=== PATIENT | male | born 1950 | race Caucasian/White ===

== ENCOUNTER → 2017-10-16 | Outpatient (CLI) | payer BC | LOC: M LRY 12:51 | DX: R06.2 Wheezing (principal) | CPT/HCPCS: 71046 ==

== ENCOUNTER → 2017-11-14 | Outpatient (REF) | payer BC ==
[2017-11-14 12:18] LABS: BASO % 0.4 % (0.0-1.0); EOS # 0.2 10^3/uL (0.0-0.50); EOS % 2.3 % (0.0-3.0); HEMATOCRIT 41.2 % (42.0-52.0); HEMOGLOBIN 13.6 g/dl (13.5-17.5); IMMATURE GRANULOCYTE % 0.4 % (0-3.0); LYMPH # 1.3 10^3/uL (1.5-4.5); LYMPH % 17.8 % (24.0-44.0); MEAN CORPUSCULAR HEMOGLOBIN 27.5 pg (27.0-33.0); MEAN CORPUSCULAR VOLUME 83.4 fl (80.0-96.0); MONO # 0.7 10^3/uL (0.0-0.8); MONO % 9.3 % (0.0-5.0); NEUTROPHILS # 4.9 10^3/uL (1.8-7.7); NEUTROPHILS % 69.8 % (36.0-66.0); PLATELET COUNT, AUTOMATED 482 10^3/uL (150-450); RED BLOOD COUNT 4.94 10^6/uL (4.30-6.10); RED CELL DISTRIBUTION WIDTH 14.3 % (11.5-14.5)
[2017-11-14 12:36] LABS: TOTAL 25(OH) VITAMIN D 15.3 NG/ML (30.0-100.0); VITAMIN B12 LEVEL 430 PG/ML (247-911)
[2017-11-14 12:40] LABS: ALBUMIN 3.3 GM/DL (3.2-5.2); ALKALINE PHOSPHATASE 118 U/L (45-117); ALT/SGPT 18 U/L (12-78); ANION GAP 8 MEQ/L (8-16); AST/SGOT 12 U/L (7-37); BILIRUBIN,TOTAL 0.3 MG/DL (0.2-1.0); BLOOD UREA NITROGEN 9 MG/DL (7-18); CALCIUM LEVEL 9.3 MG/DL (8.8-10.2); CARBON DIOXIDE LEVEL 27 MEQ/L (21-32); CHLORIDE LEVEL 104 MEQ/L (98-107); CHOLESTEROL LEVEL 230 MG/DL (<200); CHOLESTEROL RISK RATIO 5.609 (<5); CREATININE FOR GFR 0.98 MG/DL (0.70-1.30); GLOMERULAR FILTRATION RATE > 60.0 (>49); GLUCOSE, FASTING 98 MG/DL (70-100); HDL CHOLESTEROL 41 MG/DL (>40); LDL CHOLESTEROL 164.8 MG/DL (<100); NON-HDL-C 189 MG/DL; POTASSIUM SERUM 4.4 MEQ/L (3.5-5.1); PSA SCREENING 2.53 NG/ML (< 4.0); SODIUM LEVEL 139 MEQ/L (136-145); TOTAL PROTEIN 7.4 GM/DL (6.4-8.2); TRIGLYCERIDES LEVEL 121 MG/DL (<150)
== END ==
LOC: M SFHCPLAZ 11:48
DX: J44.9 Chronic obstructive pulmonary disease, unspecified (principal); Z13.220 Encounter for screening for lipoid disorders; Z12.5 Encounter for screening for malignant neoplasm of prostate; Z72.0 Tobacco use
CPT/HCPCS: 82607

== ENCOUNTER → 2017-11-14 | Outpatient (CLI) | payer BC | LOC: M LRY 08:24 | DX: J44.9 Chronic obstructive pulmonary disease, unspecified (principal); R91.8 Other nonspecific abnormal finding of lung field | CPT/HCPCS: 71046 ==

== ENCOUNTER → 2017-11-21 | Outpatient (CLI) | payer BC | LOC: M LRY 16:06 | DX: M25.561 Pain in right knee (principal) | CPT/HCPCS: 73564 ==

== ENCOUNTER → 2017-12-14 | Outpatient (REF) | payer BC ==
[2017-12-14 11:51] LABS: ALBUMIN 3.7 GM/DL (3.2-5.2); ALBUMIN/GLOBULIN RATIO 0.97 (1.00-1.93); ALKALINE PHOSPHATASE 101 U/L (45-117); ALT/SGPT 21 U/L (12-78); ANION GAP 11 MEQ/L (8-16); AST/SGOT 16 U/L (7-37); BILIRUBIN,TOTAL 0.4 MG/DL (0.2-1.0); BLOOD UREA NITROGEN 19 MG/DL (7-18); CALCIUM LEVEL 9.6 MG/DL (8.8-10.2); CARBON DIOXIDE LEVEL 23 MEQ/L (21-32); CHLORIDE LEVEL 105 MEQ/L (98-107); CREATININE FOR GFR 1.06 MG/DL (0.70-1.30); GLOMERULAR FILTRATION RATE > 60.0 (>49); GLUCOSE, FASTING 110 MG/DL (70-100); POTASSIUM SERUM 4.7 MEQ/L (3.5-5.1); SODIUM LEVEL 139 MEQ/L (136-145); TOTAL PROTEIN 7.5 GM/DL (6.4-8.2)
== END ==
LOC: M SFHCPLAZ 09:09
DX: M17.11 Unilateral primary osteoarthritis, right knee (principal)
CPT/HCPCS: 80053

== ENCOUNTER → 2017-12-19 | Outpatient (CLI) | payer BC ==
[~2017-12-19] MED LIST: ISOVUE-370 76% 100ML VIAL (Q9967) As Ordered
== END ==
LOC: M RAD 10:38
DX: R91.8 Other nonspecific abnormal finding of lung field (principal); J44.9 Chronic obstructive pulmonary disease, unspecified
CPT/HCPCS: Q9967

== ENCOUNTER → 2018-04-12 | Outpatient (REF) | payer BC ==
[2018-04-12 13:02] LABS: BASO % 0.5 % (0.0-1.0); EOS # 0.1 10^3/uL (0.0-0.50); EOS % 1.2 % (0.0-3.0); HEMATOCRIT 45.6 % (42.0-52.0); HEMOGLOBIN 14.5 g/dl (13.5-17.5); IMMATURE GRANULOCYTE % 0.4 % (0-3.0); LYMPH # 1.3 10^3/uL (1.5-4.5); LYMPH % 16.3 % (24.0-44.0); MEAN CORPUSCULAR HEMOGLOBIN 25.5 pg (27.0-33.0); MEAN CORPUSCULAR HGB CONC 31.8 g/dl (32.0-36.5); MEAN CORPUSCULAR VOLUME 80.3 fl (80.0-96.0); MONO # 0.6 10^3/uL (0.0-0.8); MONO % 7.8 % (0.0-5.0); NEUTROPHILS # 5.7 10^3/uL (1.8-7.7); NEUTROPHILS % 73.8 % (36.0-66.0); PLATELET COUNT, AUTOMATED 400 10^3/uL (150-450); RED BLOOD COUNT 5.68 10^6/uL (4.30-6.10); RED CELL DISTRIBUTION WIDTH 15.5 % (11.5-14.5); WHITE BLOOD COUNT 7.7 10^3/uL (4.0-10.0)
[2018-04-12 13:12] LABS: ALBUMIN 3.6 GM/DL (3.2-5.2); ALBUMIN/GLOBULIN RATIO 0.95 (1.00-1.93); ALKALINE PHOSPHATASE 113 U/L (45-117); ALT/SGPT 21 U/L (12-78); ANION GAP 7 MEQ/L (8-16); AST/SGOT 18 U/L (7-37); BILIRUBIN,TOTAL 0.4 MG/DL (0.2-1.0); BLOOD UREA NITROGEN 13 MG/DL (7-18); CALCIUM LEVEL 9.6 MG/DL (8.8-10.2); CARBON DIOXIDE LEVEL 30 MEQ/L (21-32); CHLORIDE LEVEL 101 MEQ/L (98-107); CREATININE FOR GFR 1.12 MG/DL (0.70-1.30); GLOMERULAR FILTRATION RATE > 60.0 (>49); GLUCOSE, FASTING 93 MG/DL (70-100); POTASSIUM SERUM 4.6 MEQ/L (3.5-5.1); SODIUM LEVEL 138 MEQ/L (136-145); TOTAL PROTEIN 7.4 GM/DL (6.4-8.2)
[2018-04-12 13:17] LABS: INR 0.97
[2018-04-12 13:18] LABS: PARTIAL THROMBOPLASTIN TIME 32.9 SECONDS (25.4-37.6)
[2018-04-12 13:20] LABS: TOTAL 25(OH) VITAMIN D 49.3 NG/ML (30.0-100.0)
== END ==
LOC: M SFHCLERA 10:44
DX: M17.11 Unilateral primary osteoarthritis, right knee (principal); E55.9 Vitamin D deficiency, unspecified
CPT/HCPCS: 80053

== ENCOUNTER → 2018-04-25 | Outpatient (CLI) | payer BC | LOC: M CARPUL 07:34 | DX: J44.9 Chronic obstructive pulmonary disease, unspecified (principal) | CPT/HCPCS: 94060 ==

== ENCOUNTER 2018-04-26 07:01 | Inpatient (IN) | payer MEDICARE, BC ==
--- NOTE | 2018-04-20 09:54 | HPE ---
DATE OF ADMISSION: 04/26/2018 ATTENDING PHYSICIAN: Dr. Bartlett CHIEF COMPLAINT: Right knee pain and stiffness. HISTORY: This is a pleasant 67-year-old male patient with progressively worsening right knee pain and stiffness. He has failed to improve with conservative management. He has elected for surgery for his continued symptoms. He has pain with weightbearing activities and activities of daily living. He has end-stage degenerative changes of his right knee on radiographs. He has been consented by Dr Bartlett for a right total knee arthroplasty. Medical optimization with Dr. Khan. CURRENT MEDICATIONS: - Drisdol 5000 units one capsule once per week - Voltaren gel as needed, discontinue that five days prior to surgery - ProAir rescue inhaler 90 mcg use as needed - Spiriva hand inhaler 18 mcg one inhalation once per day. He will bring that with him to the hospital. MEDICAL CONDITIONS INCLUDE: Chronic obstructive pulmonary disease (COPD). End-stage osteoarthritis of the right knee. Nicotine abuse. ALLERGIES: PENICILLIN. SOCIAL HISTORY: Positive for smoking and social alcohol use SURGICAL HISTORY: Meniscal repair 1974. Appendectomy. Tonsillectomy. FAMILY HISTORY: Noncontributory. REVIEW OF SYSTEMS: Denies fever or chills. Denies chest pain, shortness of breath or cough. He has intermittent symptomatology that he uses his rescue inhaler, but he uses rarely. Denies any recent upper respiratory infection (URI) or urinary tract infection (UTI) symptoms. Has persistent pain in his right knee with weightbearing activities and activities of daily living. Denies any changes in bowel or bladder habits. Physical exam today reveals alert, well-nourished, well-developed male patient. He ambulates with a limping gait favoring his right side. Exam of the right knee does reveal tenderness mainly medially and some irritability with knee range of motion. That range of motion is near full. No pain at the extremes of range of motion. He can sensate light touch. Has well perfused right lower extremity. Neck is supple without adenopathy or JVD. Lungs: There is some minimal wheezing in the base of the lungs bilaterally. Though clear to auscultation in the upper lobes. Heart: Regular rate and rhythm. Abdomen: Bowel sounds are present. CURRENT VITAL SIGNS: Weight 130 pounds, height 5.8, temperature 98.2, blood pressure 113/79, respirations 15. IMPRESSION: Symptomatic osteoarthritis of right knee. LABORATORY DATA: PT 13.0, INR 0.97, sed rate not present for review. WBC count 7.7, RBC count 5.6, hemoglobin 14.5, hematocrit 45.6, glucose 93, BUN 13, creatinine 1.12, sodium 138, potassium 4.6. EKG sinus rhythm with PACs. CHEST X-RAY: Right lung nodule evaluated with a CT scan notable for a stable appearing right lung nodule as well as COPD changes. PLAN: He is consented by Dr. Bartlett for right total knee arthroplasty. TOÑO
[2018-04-26] VITALS (7 sets, daily range): BP systolic 127–142; BP diastolic 75–96
[~2018-04-26] VITALS: Ht 172.7 cm; Wt 59.4 kg
[~2018-04-26 07:01] MED LIST changes: +ALEV220T26 PO; +CelecoXIB 400 MG CAP PO ONE; +DICL1GEL3 TOP; -ISOVUE-370 76% 100ML VIAL (Q9967) As Ordered; +LR 1,000 ML IV ONE; +PERCOCET 5MG/325MG TAB PO ONE; +PREGABALIN 75 MG CAP(LYRICA) PO ONE; +PROAAER10 INH; +TIOT18INH INH; +VANCOMYCIN HCL 1,000 MG, VIAL MATE ADAPTER 1 EACH in D5W 250 ML IV ONE
[2018-04-26] MEDS ORDERED: VANCOMYCIN 1000 MG/20 ML VIAL (J3370) As Ordered ONE (07:56)
[2018-04-26] MEDS ORDERED: MIDAZOLAM INJ 2 MG/2 ML VIAL (J2250) As Ordered ONE ×2 (08:27→08:33)
[2018-04-26] MEDS ORDERED: fentaNYL 100 MCG/2 ML INJECTION (J3010) As Ordered ONE (08:27)
[2018-04-26] MEDS ORDERED: dexameTHASONE 4 MG/ML 1ML VIAL (J1100) As Ordered ONE (08:33)
[2018-04-26] MEDS ORDERED: PROPOFOL 200 MG/20 ML VIAL As Ordered ONE (08:33)
[2018-04-26] MEDS ORDERED: ONDANSETRON 4MG/2ML VIAL (J2405) As Ordered ONE (08:33)
[2018-04-26] MEDS ORDERED: LIDOCAINE 2% INJ 100 MG/5 ML SDV (FOR ANES.) As Ordered ONE (08:36)
[2018-04-26] MEDS ORDERED: fentaNYL 100 MCG/2 ML INJECTION (J3010) IV ONE (09:15)
[2018-04-26] MEDS ORDERED: MIDAZOLAM INJ 2 MG/2 ML VIAL (J2250) IV ONE (09:15)
[2018-04-26] MEDS ORDERED: BUPIVACAINE/EPIN 0.25% 30 ML VIAL As Ordered ONE (09:52)
[2018-04-26] MEDS ORDERED: EPINEPHrine INJ 1 MG/ML 1ML AMP As Ordered ONE (09:53)
[2018-04-26] MEDS ORDERED: BUPIVACAINE LIPOSOME/PF 1.3% 20ML VIAL (13.3MG/ML)(EXPAREL)(C9290 PER1MG) As Ordered ONE (09:53)
[2018-04-26] MEDS ORDERED: TRANEXAMIC ACID 100 MG/ML 10ML VIAL As Ordered ONE (09:53)
[2018-04-26] MEDS ORDERED: CLINDAMYCIN INJ 900MG/6ML VIAL As Ordered ONE (09:57)
[2018-04-26] MEDS ORDERED: BUPIVACAINE/DEXTROSE 0.75% 2 ML AMP As Ordered ONE (10:33)
[2018-04-26] MEDS ORDERED: ePHEDrine SULFATE 25 MG/5 ML(5MG/ML) SYRINGE As Ordered ONE (11:00)
[2018-04-26] MEDS ORDERED: PHENYLephrine HCL 500 MCG/5 ML (100MCG/ML) SYRINGE (J2370) As Ordered ONE (11:06)
[2018-04-26] MEDS ORDERED: VANCOMYCIN HCL 500 MG/10 ML VIAL (J3370) As Ordered ONE (11:45)
[2018-04-26] MEDS: PERCOCET 5MG/325MG TAB PO PRN ×2 (12:55→13:48)
[2018-04-26] MEDS ORDERED: ACETAMINOPHEN TAB 650MG DOSE (2X325MG) PO PRN (13:00)
[2018-04-26] MEDS ORDERED: NORTRIPTYLINE 10 MG CAP PO PRN (13:00)
[2018-04-26] MEDS ORDERED: PERCOCET 5MG/325MG TAB PO PRN ×2 (13:00)
[2018-04-26] MEDS ORDERED: ONDANSETRON 4MG/2ML VIAL (J2405) IV PRN ×2 (13:00→13:15)
[2018-04-26] MEDS ORDERED: FLEET ENEMA PR PRN (13:00)
--- NOTE | 2018-04-26 13:08 | REP ---
REASON FOR EXAM: Postoperative. PRIORS: None. A total knee prosthetic device has been placed. The femoral and tibial components of which are well seated and well approximated. There is expected postoperative soft tissue swelling. IMPRESSION: Status post TKR as described above. Electronically Signed by Elliott Sol DO 04/26/2018 01:51 P
[2018-04-26] MEDS ORDERED: LR 1,000 ML IV SCH (13:15)
[2018-04-26] MEDS ORDERED: HYDROMORPHONE HCL 0.5 MG/ 0.5 ML SYRINGE (J1170 PER 1) IV PRN ×2 (13:15)
[2018-04-26] MEDS ORDERED: fentaNYL 100 MCG/2 ML INJECTION (J3010) IV PRN (13:15)
[2018-04-26] MEDS ORDERED: LIDOCAINE 1% MDV 20ML VIAL ONE (13:33)
[2018-04-26] MEDS ORDERED: ROPIvacaine 0.5% 30 ML INJECTION (J2795 PER 1MG) ONE (13:33)
[2018-04-26] MEDS ORDERED: dexameTHASONE 10 MG/1 ML VIAL PRES.FREE (J1100) ONE (13:33)
[2018-04-26] MEDS: D5W/LR 1,000 ML IV SCH ×2 (15:51→23:00)
--- NOTE | 2018-04-26 17:49 | IPNPDOC ---
Text Note Date of Service The patient was seen on 04/26/18. NOTE HPI: Patient had right knee replacement today. Is comfortable. Denies any pain currently. No shortness of breath or cough. Normally uses spiriva daily for emphysema and uses rescue inhaler couple times a week as needed. ROS: General: No fevers, chills. Cardiac: No chest pain. Respiratory: No cough, shortness of breath. Physical Exam: General: Resting comfortably in bed. No acute distress. HEENT: Atraumatic. Cardiac: Normal s1, s2. No clicks rubs or gallops. Respiratory: Clear to auscultation bilaterally. Abdomen: Soft, nondistended. Extremity: Left lower extremity elevated on pillows. Surgical site over right knee covered. Assessment/Plan: 1. Right knee replacement Care managed by orthopaedics. 2. Emphysema Patient uses Spiriva and rescue inhaler at home. Continue with Spiriva tomorrow. 3. Nicotine dependence Patient smokes 1.5 ppd. Offered nicotine patch, declines. Plan: Continue to monitor patient as needed. VS,Fishbone, I+O VS, Fishbone, I+O Vital Signs Date Time Temp Pulse Resp B/P (MAP) Pulse Ox O2 Delivery O2 Flow Rate FiO2 04/26/18 15:00 97.4 104 20 127/78 (94) 91 Room Air 04/26/18 12:35 2 GME ATTESTATION ATTENDING NOTE Family Medicine Attending Note: I was present on site to supervise Mer Sawant D.O. (OGME-3). We discussed the history and exam. I confirmed the scott elements during my [id number] encounter with the patient. We conferred on the assessment and plan; I agree with the note as documented. Mr. Beal did well during surgery. His major medical concern would be COPD and respiratory concerns. He is doing well now. I reinforced regular use of his incentive spirometer which was at his bedside and he could demonstrate adequate use. (office clinician) MER SAWANT DO Apr 26, 2018 17:14 Jose Temple MD Apr 26, 2018 22:04
[2018-04-26] MEDS ORDERED: VANCOMYCIN HCL 1,000 MG, VIAL MATE ADAPTER 1 EACH in D5W 250 ML IV ONE (21:00)
[2018-04-27 02:00] VITALS: BP 119/77
[2018-04-27 06:00] VITALS: BP 145/77
[2018-04-27 07:25] LABS: HEMATOCRIT 34.5 % (42.0-52.0); HEMOGLOBIN 11.2 g/dl (13.5-17.5); MEAN CORPUSCULAR HEMOGLOBIN 25.7 pg (27.0-33.0); MEAN CORPUSCULAR HGB CONC 32.5 g/dl (32.0-36.5); MEAN CORPUSCULAR VOLUME 79.3 fl (80.0-96.0); PLATELET COUNT, AUTOMATED 280 10^3/uL (150-450); RED BLOOD COUNT 4.35 10^6/uL (4.30-6.10); WHITE BLOOD COUNT 15.4 10^3/uL (4.0-10.0)
[2018-04-27 07:36] LABS: INR 1.1; PROTHROMBIN TIME 14.4 SECONDS (12.1-14.4)
[2018-04-27] MEDS ORDERED: XARE10TA PO (08:23)
[2018-04-27] MEDS ORDERED: PERC5TAB12 PO (08:23)
[2018-04-27] MEDS ORDERED: TIOTROPIUM INHALER/CAPSULE (SPIRIVA) INH SCH (09:00)
[2018-04-27] MEDS ORDERED: SENOKOT S TAB PO SCH (09:00)
[2018-04-27] MEDS ORDERED: CelecoXIB (CeleBREX) 100 MG CAP PO ONE (09:00)
[2018-04-27] MEDS ORDERED: MOM 30ML SUSPENSION UDC PO SCH (09:00)
[2018-04-27] MEDS ORDERED: MIRALAX *UNIT DOSE* 17GM PACKET PO SCH (09:00)
[2018-04-27 10:00] VITALS: BP 122/81
--- NOTE | 2018-04-27 17:40 | RO ---
DATE OF PROCEDURE: 04/26/2018 PREOPERATIVE DIAGNOSIS: Right knee osteoarthritis. POSTOPERATIVE DIAGNOSIS: Right knee osteoarthritis. PROCEDURE PERFORMED: Right total knee replacement, cemented posterior stabilized. SURGEON: Dr. Zachary Bartlett DELICATESSEN SLICER: Mr. Painter, Physician Car Knocker ANESTHESIA: Spinal with block. ESTIMATED BLOOD LOSS: Less than 50 mL. No complications. Tourniquet was inflated 250 mmHg. Tourniquet time was 63 minutes. COMPONENTS USED: Include the DePuy Attune posterior stabilized rotating platform knee system. Next, tobramycin bone cement was utilized. INDICATION: Progressive discomfort and deformity right knee. Consent reviewed in detail including a dianne discussion of the pathology involved, the procedure proposed, alternatives including doing nothing, risks including but not limited to pain, failure, infection, bleeding, blood loss, incomplete relief of symptoms, need for additional surgery and other issues. The patient agrees to proceed. DESCRIPTION OF PROCEDURE: Identified in holding area, site and side verified, block was accomplished, brought to the operating room. He was positioned in usual fashion for exposure of the right knee for arthroplasty. Tourniquet high on the right thigh. Addis exsanguination was utilized eventually. Next, the knee was prepped, draped in the usual fashion. Incision outlined with a marking pen, infiltrated with 0.25% Marcaine with epinephrine. Incision made with a #10 blade knife, developed down through skin and subcuticular tissues. Standard medial parapatellar arthrotomy was accomplished. Supracondylar soft tissue cleared. Infrapatellar fat pad removed. Medial release accomplished. Next, patella everted, knee flexed, distal femoral cuts were made, AP sizing guide predicting a size 7 standard femur, four-in-one block secured, appropriate retractors maintained by Mr. Painter. I utilized the oscillating saw to make the anterior, posterior followed by the chamfer cuts. The block was removed. Next, extramedullary tibial alignment guide utilized to make the proximal tibial cut. It was applied to the tibia, secured using pins, adjusted for 4 mm off bad side, pinned into place, based on the second ray, approximately 5 degrees slope. Next, drop rayna was utilized to verify alignment. Next, Mr. Painter secured posterior and Hohmann retractors. I utilized the oscillating saw to remove proximal tibia. Next, once this was accomplished, lamina spreaders were utilized to open knee. Posterior knee was cleared. This included the removal of the meniscus bilaterally, removal of posterior osteophytes bilaterally. Next, notch block was utilized to make the notch cut removing the bone between the femoral condyles and posterior cruciate ligament (PCL) insertion on the femur. Next, spacing blocks were utilized, felt a 10 mm tray/polyethylene was appropriate in both flexion and extension. Next, once this was accomplished, trial components were installed, tamped into place. Knee was placed through a range of motion. Rotational darshana was made. Trial 10 mm was stable. Patella everted, posterior patella cut made, trialed with a size 38 mm patella, which was used. Next, the trial components were then removed. Next, the knee was flexed, tibial plate size 7 was applied, pinned into place. The tibial drill followed by tibial broach were utilized. Next, these components were then removed. Next, Mr. Painter stepped to the back table to prepare the bone cement. Because of the patient's history of COPD, in my opinion slightly increased risk of infection, we did utilize tobramycin bone cement. I prepared the femoral surfaces using pulse lavage and dried them as well as the posterior patella surface. Next, components were cemented into place. Excess cement was removed with curettes, non-trial polyethylene was installed, the knee was reduced, patella clamp was installed. Excess cement cleared, cement was allowed to harden. TXA was allowed to glaze grinder the wound for approximately 1 minute while cement was hardening. We also utilized pulse lavage. Please also note that when we cleared the posterior capsule of the knee using the lamina spreaders, I did inject this area with Exparel anesthetic solution for postoperative pain control. Next, as the cement was hardening, I also injected Exparel around the extensor mechanism and subcuticular tissues for postoperative pain control as well as the femoral periosteum, which was accessible from the anterior. Next, once we had irrigated and injected, we closed the arthrotomy with interrupted stitch, as well as a running Stratafix. Deep dermis was approximated with interrupted stitch. Prineo dressing was applied. Tourniquet was deflated at 63 minutes. For further details, please refer to the medical record.
[2018-04-27] MEDS ORDERED: RIVAROXABAN 10 MG TAB (XARELTO) PO SCH (18:00)
--- NOTE | 2018-05-02 09:30 | DSES ---
DATE OF ADMISSION: 04/26/2018 DATE OF DISCHARGE: 04/27/2018 ATTENDING PHYSICIAN: Dr. Zachary Bartlett ADMISSION DIAGNOSIS: Right knee osteoarthritis. OTHER DIAGNOSES: Chronic obstructive pulmonary disease, nicotine abuse. DISCHARGE DIAGNOSIS: Right knee osteoarthritis status post right total knee arthroplasty. HISTORY: The patient is a 68-year-old male that had progressively worsening right knee pain and stiffness. He failed to improve with conservative measures. He continued to have symptoms with weightbearing activities and activities of daily living. He consented for an elective right total knee arthroplasty with Dr. Bartlett for his continued symptoms. OPERATION PERFORMED: Right total knee arthroplasty, cemented posterior stabilized. HOSPITAL COURSE: The patient underwent a right total knee arthroplasty under spinal anesthesia with femoral nerve block. Surgery was uneventful and his hospital course was without complication. He was up with physical therapy per their protocol, weightbearing as tolerated on the right lower extremity. The patient was discharged on oral pain medications and will resume his preoperative medications and diet. The patient will use his thromboembolic deterrent stockings for 30 days postoperatively and take his anticoagulant as directed to prevent deep venous thrombosis. The patient will follow up in our office in 12-14 days for wound check. He is encouraged to contact our office sooner if there is any increase in pain, drainage, redness, numbness and tingling in the extremity, fever greater than 101 degrees or any other concerns. Please see medical record for additional details. TOÑO
== END 2018-04-27 11:55 | disposition home health service (06) | DRG 470 ==
LOC: M OR 07:01 → M MS5PR 13:55
PROVIDERS: ADMIT Orthopaedic Surgery; ATTEND Orthopaedic Surgery
PROC: 0SRC0J9 Replacement of Right Knee Joint with Synthetic Substitute, Cemented, Open Approach (ICD-10-PCS; principal; 2018-04-26 10:30)
DX: M17.11 Unilateral primary osteoarthritis, right knee (principal); J43.9 Emphysema, unspecified; R26.89 Other abnormalities of gait and mobility; F17.210 Nicotine dependence, cigarettes, uncomplicated; Z88.0 Allergy status to penicillin; Z79.899 Other long term (current) drug therapy

== ENCOUNTER → 2018-05-18 | Outpatient (CLI) | payer BC ==
[~2018-05-18] MED LIST changes: -ALEV220T26 PO; -CelecoXIB 400 MG CAP PO ONE; -DICL1GEL3 TOP; +ISOVUE-370 76% 100ML VIAL (Q9967) As Ordered; -LR 1,000 ML IV ONE; -PERCOCET 5MG/325MG TAB PO ONE; -PREGABALIN 75 MG CAP(LYRICA) PO ONE; -PROAAER10 INH; -TIOT18INH INH; -VANCOMYCIN HCL 1,000 MG, VIAL MATE ADAPTER 1 EACH in D5W 250 ML IV ONE
== END ==
LOC: M RAD 14:04
DX: R91.8 Other nonspecific abnormal finding of lung field (principal); I70.0 Atherosclerosis of aorta
CPT/HCPCS: Q9967

== ENCOUNTER → 2018-05-23 | Outpatient (REF) | payer BC ==
[2018-05-26 00:07] LABS: QuantiFERON-TB Gold Plus Negative (Negative)
== END ==
LOC: M SFHCPLAZ 10:30
DX: R91.8 Other nonspecific abnormal finding of lung field (principal)
CPT/HCPCS: 86480

== ENCOUNTER → 2018-10-01 | Outpatient (CLI) | payer BC ==
[~2018-10-01] MED LIST changes: +ALEV220T26 PO; +DICL1GEL3 TOP; -ISOVUE-370 76% 100ML VIAL (Q9967) As Ordered; +PERC5TAB12 PO; +PROAAER10 INH; +TIOT18INH INH; +XARE10TA PO
--- NOTE | 2018-10-01 13:48 | REP ---
Chest two views HISTORY: Cough Comparison: 11/14/2017 The lungs are hyperinflated. Emphysematous changes present. A similar parenchymal density is present in the right lower lobe unchanged compared to the previous study. Linear densities are present in the right lower lobe consistent with scarring. The heart is normal in size. The pulmonary vasculature is normal in appearance. The bony structure is intact. IMPRESSION: COPD. Electronically Signed by Rolando Lei MD 10/01/2018 01:39 P
[2018-10-01 18:16] LABS: BASO % 0.4 % (0.0-1.0); EOS # 0.1 10^3/uL (0.0-0.50); EOS % 1.6 % (0.0-3.0); HEMATOCRIT 44.2 % (42.0-52.0); HEMOGLOBIN 13.9 g/dl (13.5-17.5); LYMPH # 1.6 10^3/uL (1.5-4.5); LYMPH % 19.9 % (24.0-44.0); MEAN CORPUSCULAR HEMOGLOBIN 24.2 pg (27.0-33.0); MEAN CORPUSCULAR HGB CONC 31.4 g/dl (32.0-36.5); MONO # 0.7 10^3/uL (0.0-0.8); MONO % 8.7 % (0.0-5.0); NEUTROPHILS # 5.6 10^3/uL (1.8-7.7); PLATELET COUNT, AUTOMATED 384 10^3/uL (150-450); RED BLOOD COUNT 5.74 10^6/uL (4.30-6.10); WHITE BLOOD COUNT 8.1 10^3/uL (4.0-10.0)
[2018-10-01 18:23] LABS: ALBUMIN 3.6 GM/DL (3.2-5.2); ALT/SGPT 19 U/L (12-78); BILIRUBIN,TOTAL 0.3 MG/DL (0.2-1.0); BLOOD UREA NITROGEN 15 MG/DL (7-18); CALCIUM LEVEL 9.5 MG/DL (8.8-10.2); CARBON DIOXIDE LEVEL 27 MEQ/L (21-32); CHLORIDE LEVEL 100 MEQ/L (98-107); CREATININE FOR GFR 1.01 MG/DL (0.70-1.30); GLOMERULAR FILTRATION RATE > 60.0 (>49); GLUCOSE, FASTING 81 MG/DL (70-100); POTASSIUM SERUM 4.9 MEQ/L (3.5-5.1); SODIUM LEVEL 135 MEQ/L (136-145); TOTAL PROTEIN 7.1 GM/DL (6.4-8.2)
== END ==
LOC: M SMT 13:00
PROVIDERS: ATTEND Physician Assistant Medical
DX: J44.9 Chronic obstructive pulmonary disease, unspecified (principal)

== ENCOUNTER → 2018-10-15 | Outpatient (CLI) | payer BC ==
[~2018-10-15] MED LIST changes: +ISOVUE-370 76% 100ML VIAL (Q9967) As Ordered ONE
--- NOTE | 2018-10-16 05:24 | REP ---
Clinical: Followup lung nodule. Technique: Axial contrast enhanced images from the thoracic inlet to the upper abdomen with coronal and sagittal re-formations. Comparison: 05/18/2018, 02/09/2018. Findings: Advanced COPD/emphysematous changes with bronchiectasis and scattered fibrosis/scarring remains stable. Area of presumed chronic rounded atelectasis along the medial right lower lobe as well as few scattered noncalcified opacities measuring up to approximately 11 mm remain unchanged. No acute consolidation, effusion, or pneumothorax. No significant adenopathy. Mediastinum demonstrates age-related atherosclerotic changes to the thoracic aorta and coronary arteries without aortic aneurysm/dissection, cardiomegaly or pericardial effusion. Surrounding musculoskeletal structures demonstrate age-related changes without focal osseous abnormality. Impression: 1. Area of opacity along the medial right lower lobe with surrounding fibrosis/scarring remains stable and likely represents chronic rounded atelectasis. 2. Few scattered noncalcified opacities primarily noted in the right hemithorax up to 11 mm remains stable. 3. Advanced COPD/emphysematous changes again noted. 4. No obvious acute mediastinal or pleuroparenchymal process appreciated. Electronically Signed by Bernabe Prakash MD 10/16/2018 05:15 A
== END ==
LOC: M RAD 16:27
PROVIDERS: ATTEND Physician Assistant Medical
DX: R91.1 Solitary pulmonary nodule (principal); J44.9 Chronic obstructive pulmonary disease, unspecified
CPT/HCPCS: 71260; Q9967

== ENCOUNTER → 2018-10-17 | Outpatient (REF) | payer BC ==
[~2018-10-17] MED LIST changes: -ISOVUE-370 76% 100ML VIAL (Q9967) As Ordered ONE
[2018-10-17 13:19] LABS: BASO % 0.6 % (0.0-1.0); EOS # 0.1 10^3/uL (0.0-0.50); EOS % 1.7 % (0.0-3.0); HEMATOCRIT 43.2 % (42.0-52.0); HEMOGLOBIN 13.4 g/dl (13.5-17.5); LYMPH # 1.3 10^3/uL (1.5-4.5); MEAN CORPUSCULAR HEMOGLOBIN 24.7 pg (27.0-33.0); MEAN CORPUSCULAR VOLUME 79.7 fl (80.0-96.0); MONO # 0.6 10^3/uL (0.0-0.8); MONO % 9.2 % (0.0-5.0); NEUTROPHILS # 4.8 10^3/uL (1.8-7.7); NEUTROPHILS % 69.1 % (36.0-66.0); PLATELET COUNT, AUTOMATED 407 10^3/uL (150-450); RED BLOOD COUNT 5.42 10^6/uL (4.30-6.10); WHITE BLOOD COUNT 6.9 10^3/uL (4.0-10.0)
[2018-10-17 13:43] LABS: ALBUMIN 3.5 GM/DL (3.2-5.2); ALT/SGPT 16 U/L (12-78); BILIRUBIN,TOTAL 0.4 MG/DL (0.2-1.0); BLOOD UREA NITROGEN 11 MG/DL (7-18); CALCIUM LEVEL 9.3 MG/DL (8.8-10.2); CARBON DIOXIDE LEVEL 27 MEQ/L (21-32); CHLORIDE LEVEL 103 MEQ/L (98-107); CREATININE FOR GFR 0.97 MG/DL (0.70-1.30); GLOMERULAR FILTRATION RATE > 60.0 (>49); GLUCOSE, FASTING 107 MG/DL (70-100); POTASSIUM SERUM 4.5 MEQ/L (3.5-5.1); PTH INTACT 24.8 PG/ML (18.5-88.0); SODIUM LEVEL 136 MEQ/L (136-145); TOTAL 25(OH) VITAMIN D 30.2 NG/ML (30.0-100.0); TOTAL PROTEIN 7.1 GM/DL (6.4-8.2)
== END ==
LOC: M SFHCPLAZ 08:43
PROVIDERS: ATTEND Physician Assistant Medical
DX: J44.9 Chronic obstructive pulmonary disease, unspecified (principal); E55.9 Vitamin D deficiency, unspecified; I10 Essential (primary) hypertension; Z12.5 Encounter for screening for malignant neoplasm of prostate
CPT/HCPCS: 80053; 82306; 83970; 85025; G0103

== ENCOUNTER → 2018-11-27 | Outpatient (REF) | payer BC ==
[2018-11-27 17:45] LABS: ALBUMIN 3.5 GM/DL (3.2-5.2); ALT/SGPT 17 U/L (12-78); BILIRUBIN,TOTAL 0.4 MG/DL (0.2-1.0); BLOOD UREA NITROGEN 16 MG/DL (7-18); C REACTIVE PROTEIN QUANTITATIV 1.03 MG/DL (0.00-0.30); CALCIUM LEVEL 9.7 MG/DL (8.8-10.2); CARBON DIOXIDE LEVEL 25 MEQ/L (21-32); CHLORIDE LEVEL 102 MEQ/L (98-107); CREATININE FOR GFR 1.11 MG/DL (0.70-1.30); GLOMERULAR FILTRATION RATE > 60.0 (>49); GLUCOSE, FASTING 123 MG/DL (70-100); POTASSIUM SERUM 4.2 MEQ/L (3.5-5.1); SODIUM LEVEL 135 MEQ/L (136-145); TOTAL PROTEIN 7.6 GM/DL (6.4-8.2)
[2018-11-27 17:47] LABS: INR 1.02; PROTHROMBIN TIME 13.5 SECONDS (12.1-14.4)
[2018-11-27 17:48] LABS: PARTIAL THROMBOPLASTIN TIME 33.6 SECONDS (25.4-37.6)
[2018-11-27 21:28] LABS: BASO # 0.1 10^3/uL (0.0-0.2); BASO % 0.5 % (0.0-1.0); EOS # 0.1 10^3/uL (0.0-0.50); EOS % 1.2 % (0.0-3.0); HEMOGLOBIN 14.4 g/dl (13.5-17.5); LYMPH # 1.8 10^3/uL (1.5-4.5); LYMPH % 16.8 % (24.0-44.0); MEAN CORPUSCULAR HEMOGLOBIN 25.5 pg (27.0-33.0); MEAN CORPUSCULAR VOLUME 79.8 fl (80.0-96.0); MONO # 0.8 10^3/uL (0.0-0.8); MONO % 7.2 % (0.0-5.0); NEUTROPHILS % 73.7 % (36.0-66.0); PLATELET COUNT, AUTOMATED 500 10^3/uL (150-450); RED BLOOD COUNT 5.64 10^6/uL (4.30-6.10); WHITE BLOOD COUNT 10.9 10^3/uL (4.0-10.0)
[2018-11-27 21:54] LABS: ERYTHROCYTE SEDIMENTATION RATE 7 mm/hr (0-20)
== END ==
LOC: M SFHCPLAZ 13:19
PROVIDERS: ATTEND Family Medicine
DX: Z01.818 Encounter for other preprocedural examination (principal); E78.2 Mixed hyperlipidemia

== ENCOUNTER → 2018-11-27 | Outpatient (CLI) | payer BC ==
--- NOTE | 2018-11-27 15:33 | REP ---
PA and lateral chest: Comparisons are 10/01/2018, 11/14/2017 and 10/16/2017. The lung lemon are chronically hyperinflated, unchanged. The central lukasz are chronically enlarged, unchanged, possibly representing pulmonary hypertension. There are no acute infiltrates or pleural effusions. There is a faintly visible lung nodule inferiorly in the right lung, unchanged from the prior studies. Please refer to the patients chest CT scans for evaluation of this patient's lung nodules. Vertebral body heights, interspacing alignment are normal. Impression: Chronic hyperinflation with chronically enlarged central pulmonary arteries suggestive of COPD and pulmonary hypertension. No acute cardiopulmonary findings. Thoracic spine is unremarkable. The patients known lung nodules have been followed on multiple CT scans. Electronically Signed by Jaswinder Vaca MD 11/27/2018 03:24 P
--- NOTE | 2018-11-27 15:36 | REP ---
Cervical spine seven views: Vertebral body heights and alignment are unremarkable. There is disc space narrowing at C 03/04. There is a large anterior bridging osteophyte at C4-5. These findings are compatible with degenerative disc disease. There is mild facet osteoarthritis. The facets are normally aligned. The prevertebral soft tissues are unremarkable. The odontoid view is unremarkable. There is no bony foraminal encroachment. Impression: Degenerative disc disease as described. Mild facet osteoarthritis. T1 is obscured by the shoulders. Follow-up CT or MRI might be considered to evaluate the C7-T1 area. Electronically Signed by Jaswidner Vaca MD 11/27/2018 03:28 P
--- NOTE | 2018-11-27 16:54 | REP ---
Thoracic spine series: Three views. History: Thoracic spondylosis. Findings: Thoracic vertebral body heights are preserved. No fracture or collapse is seen. Alignment is normal. There is mild discogenic spurring in the cervical spine seen on the swimmer's lateral view. No bony destructive lesion is seen. No paravertebral soft-tissue mass is noted. Impression: Mild degenerative disc changes. No acute bony abnormality. Electronically Signed by Inder Ruiz MD 11/28/2018 07:53 A
== END ==
LOC: M LRY 13:22
PROVIDERS: ATTEND Family Medicine
DX: I28.8 Other diseases of pulmonary vessels (principal); R91.8 Other nonspecific abnormal finding of lung field

== ENCOUNTER 2018-12-07 12:42 | Day surgery (SDC) | payer BC ==
[~2018-12-07] VITALS: Ht 175.3 cm; Wt 52.6 kg
[~2018-12-07 12:42] MED LIST changes: +LIDOCAINE 1% MDV 20ML VIAL SQ PRN; +LR 1,000 ML IV ONE
[2018-12-07] MEDS ORDERED: fentaNYL 250 MCG/5 ML INJECTION (J3010) As Ordered ONE (12:43)
[2018-12-07] MEDS ORDERED: LIDOCAINE 2% INJ 100 MG/5 ML SDV (FOR ANES.) As Ordered ONE (12:43)
[2018-12-07] MEDS ORDERED: ROCURONIUM BROMIDE 50 MG/5 ML VIAL As Ordered ONE (12:43)
[2018-12-07] MEDS ORDERED: MIDAZOLAM INJ 2 MG/2 ML VIAL (J2250) As Ordered ONE (12:43)
[2018-12-07] MEDS ORDERED: KETAMINE HCL 200 MG/20 ML VIAL As Ordered ONE (12:43)
[2018-12-07] MEDS ORDERED: PROPOFOL 200 MG/20 ML VIAL As Ordered ONE (12:43)
[2018-12-07] MEDS ORDERED: KETOROLAC 60 MG/2 ML VIAL (J1885) As Ordered ONE (12:44)
[2018-12-07] MEDS ORDERED: SUGAMMADEX SODIUM 500 MG/5 ML VIAL (BRIDION) As Ordered ONE (12:44)
[2018-12-07] MEDS ORDERED: dexameTHASONE 4 MG/ML 1ML VIAL (J1100) As Ordered ONE (12:44)
[2018-12-07] MEDS ORDERED: ONDANSETRON 4MG/2ML VIAL (J2405) As Ordered ONE (12:44)
[2018-12-07] MEDS ORDERED: CLINDAMYCIN 600 MG/50 ML PREMIX BAG As Ordered ONE (12:56)
[2018-12-07] MEDS ORDERED: CLINDAMYCIN 600 MG in APPROPRIATE DILUENT 1 EA IV ONE (13:00)
[2018-12-07] MEDS ORDERED: BUPIVACAINE/EPIN 0.25% 30 ML VIAL As Ordered ONE (13:04)
[2018-12-07] MEDS ORDERED: ALBUTEROL SULFATE 2.5 MG/0.5 ML INH NEB SOLN As Ordered ONE (13:36)
[2018-12-07] MEDS ORDERED: ALBUTEROL SULFATE 2.5 MG/0.5 ML INH NEB SOLN INH ONE (14:00)
[2018-12-07] MEDS ORDERED: PERCOCET 5MG/325MG TAB As Ordered ONE (16:18)
[2018-12-07] MEDS ORDERED: fentaNYL 100 MCG/2 ML INJECTION (J3010) IV PRN (16:30)
[2018-12-07] MEDS ORDERED: NORCO, ANEXSIA 5/325MG TABLET (HYDROcodone/ACETAMINOPHEN) PO PRN (16:30)
[2018-12-07] MEDS ORDERED: ONDANSETRON 4MG/2ML VIAL (J2405) IV PRN (16:30)
[2018-12-07] MEDS ORDERED: hydrALAZINE INJ 20 MG/ML VIAL IV SCH (16:30)
[2018-12-07] MEDS ORDERED: PERCOCET 5MG/325MG TAB PO PRN (16:30)
[2018-12-07] MEDS ORDERED: LABETALOL HCL 100 MG/20 ML VIAL IV SCH (16:30)
[2018-12-07] MEDS ORDERED: LR 1,000 ML IV SCH (16:30)
[2018-12-07] MEDS ORDERED: HYDROMORPHONE HCL 0.5 MG/ 0.5 ML SYRINGE (J1170 PER 1) IV PRN (16:30)
--- NOTE | 2018-12-07 16:49 | RO ---
DATE OF PROCEDURE: 12/07/2018 PREOPERATIVE DIAGNOSIS: Bilateral inguinal hernias. POSTOPERATIVE DIAGNOSIS: Bilateral inguinal hernias. PROCEDURE: Robotic assisted bilateral inguinal hernia repair. SURGEON: Dr. Goel. ASSIST: Osiris Schultz ANESTHESIA: General. ESTIMATED BLOOD LOSS: 5. COMPLICATIONS: None. INDICATIONS FOR PROCEDURE: Patient is a 68-year-old male presents with bilateral groin pain with bilateral bulges was found to have bilateral inguinal hernia. Recommendation to proceed with robotic repair. Risks, benefits of procedure not limited but including bleeding, infection, hernia formation, hernia recurrence, damage to surrounding structures, need for further surgery discussed in detail with the patient informed was obtained procedure was planned. PROCEDURE: The patient brought back to operating room seven after sufficient sedation and was sterilely prepped and draped. Next time out was done to confirm proper patient and proper procedure. Following that a stab incision made in left lower quadrant Veress was inserted. The abdomen was insufflated to 50 mmHg. Next an 8 mm supraumbilical midline incision was made and an 8 mm optiview port was used to gain access to the abdomen. Once the abdomen was entered Veress needle site was exam and no signs of any injury. Another 8 mm port was placed in the right and left mid abdomen. Next robot was docked from the console in the right groin. There is an obvious direct inguinal hernia identified. The preperitoneal space was opened with a curved incision preperitoneal was space then dissected medially and laterally using blunt sharp dissection. The hernia sac was identified and direct and there is a femoral hernia there as well. Both of those were dissected free completely then and in the indirect space there was a large cord lipoma that was dissected free and removed. Once this was all completed 3-0 and V-lock suture was used to close the fascial defect at the direct hernia site. One that was completed the same and a curved incision made in the left side into the preperitoneal space and this was dissected free medially and laterally where another direct and femoral hernia were identified. These were both completely reduced. Once that was area was completely dissected free Bard 3-D Max light medium size mesh was first placed into the right side sutured in place to the pubic symphysis with 2-0 Vicryl suture. Same process was done the left side with mesh placement and sutured to the pubic symphysis. Next a 2-0 V-Loc was used to close to the peritoneum first on the left on the right after doing so the needles were all removed. The cord lipoma that was removed from the right side was taken out as a specimen and the abdomen was desufflated. Skin incisions were closed 4-0 Vicryl subcu sutures. The abdomen cleaned and dried. Steri-Strips, 4x4 and tape were applied thus ending procedure.
[2018-12-07 19:41] VITALS: BP 150/90
== END 2018-12-07 19:41 | disposition home or self-care (01) ==
LOC: M SDC 12:42
PROVIDERS: ATTEND Surgery
DX: K40.20 Bilateral inguinal hernia, without obstruction or gangrene, not specified as recurrent (principal); J44.9 Chronic obstructive pulmonary disease, unspecified; Z88.0 Allergy status to penicillin; Z79.51 Long term (current) use of inhaled steroids; F17.210 Nicotine dependence, cigarettes, uncomplicated
CPT/HCPCS: 49650; 88304; C1781; J1100; J1885; J2250; J2405; J3010

== ENCOUNTER → 2019-02-19 | Outpatient (CLI) | payer BC ==
[~2019-02-19] MED LIST changes: -LIDOCAINE 1% MDV 20ML VIAL SQ PRN; -LR 1,000 ML IV ONE
--- NOTE | 2019-02-19 12:42 | REP ---
RIGHT HAND SERIES: TWO VIEWS. HISTORY: Rheumatoid arthritis. FINDINGS: Two views of the right hand demonstrate mild diffuse osteopenia. There is osteoarthritic spurring at the 1st MCP joint, mild in degree. There is no significant joint space narrowing. Mild spurring is seen at the IP joint of the thumb. No erosive changes seen. There is no evidence of ulnar deviation. There is some soft tissue swelling about the PIP joint of the ring finger. IMPRESSION: Mild osteoarthritic changes. Diffuse osteopenia. Soft tissue swelling about the PIP joint of the ring finger. No erosive changes. LEFT HAND SERIES: TWO VIEWS. HISTORY: Rheumatoid arthritis. FINDINGS: Two views of the left hand demonstrate mild diffuse osteopenia. There is mild osteoarthritic spurring at the 1st FCI and 1st IP joints. No erosive changes are seen. IMPRESSION: No erosive changes seen. Mild diffuse osteopenia. Early osteoarthritic changes. Electronically Signed by Inder Ruiz MD 02/19/2019 01:06 P
--- NOTE | 2019-02-19 12:45 | REP ---
BILATERAL WRIST SERIES: EIGHT VIEWS. HISTORY: Rheumatoid arthritis. FINDINGS: Four views of each wrist demonstrate preserved joint spaces and normal alignment. No erosive changes seen on either side. There is minimal spurring at the 1st metacarpal carpal articulations bilaterally. IMPRESSION: No erosive changes seen. Minimal osteoarthritis at the 1st carpometacarpal articulation bilaterally. Electronically Signed by Inder Ruiz MD 02/19/2019 01:06 P
== END ==
LOC: M LRY 10:53
PROVIDERS: ATTEND Physician Assistant Medical
DX: M06.012 Rheumatoid arthritis without rheumatoid factor, left shoulder (principal)

== ENCOUNTER → 2019-06-06 | Outpatient (REF) | payer BC ==
[2019-06-06 11:52] LABS: BASO # 0.1 10^3/uL (0.0-0.2); BASO % 0.5 % (0.0-1.0); EOS # 0.1 10^3/uL (0.0-0.5); EOS % 1.5 % (0.0-3.0); HEMOGLOBIN 13.2 g/dl (13.5-17.5); LYMPH # 1.2 10^3/uL (1.5-5.0); LYMPH % 13.3 % (24.0-44.0); MEAN CORPUSCULAR HEMOGLOBIN 24.7 pg (27.0-33.0); MEAN CORPUSCULAR HGB CONC 31.4 g/dl (32.0-36.5); MEAN CORPUSCULAR VOLUME 78.5 fl (80.0-96.0); MONO # 0.9 10^3/uL (0.0-0.8); MONO % 10.1 % (0.0-5.0); NEUTROPHILS # 6.9 10^3/uL (1.5-8.5); NEUTROPHILS % 74.3 % (36.0-66.0); PLATELET COUNT, AUTOMATED 483 10^3/uL (150-450); RED BLOOD COUNT 5.35 10^6/uL (4.30-6.10); WHITE BLOOD COUNT 9.2 10^3/uL (4.0-10.0)
[2019-06-06 11:58] LABS: ALBUMIN 3.2 GM/DL (3.2-5.2); ALT/SGPT 13 U/L (12-78); BILIRUBIN,TOTAL 0.3 MG/DL (0.2-1.0); BLOOD UREA NITROGEN 13 MG/DL (7-18); C REACTIVE PROTEIN QUANTITATIV 2.66 MG/DL (0.00-0.30); CALCIUM LEVEL 9.4 MG/DL (8.8-10.2); CARBON DIOXIDE LEVEL 29 MEQ/L (21-32); CHLORIDE LEVEL 100 MEQ/L (98-107); CREATININE FOR GFR 1.04 MG/DL (0.70-1.30); GLOMERULAR FILTRATION RATE > 60.0 (>49); GLUCOSE, FASTING 95 MG/DL (70-100); POTASSIUM SERUM 4.6 MEQ/L (3.5-5.1); SODIUM LEVEL 134 MEQ/L (136-145); TOTAL PROTEIN 7.3 GM/DL (6.4-8.2)
[2019-06-06 12:23] LABS: ERYTHROCYTE SEDIMENTATION RATE 41 mm/hr (0-20)
== END ==
LOC: M SFHCPLAZ 10:10
PROVIDERS: ATTEND Physician Assistant Medical
DX: M06.012 Rheumatoid arthritis without rheumatoid factor, left shoulder (principal)

== ENCOUNTER → 2019-07-11 | Outpatient (REF) | payer BC ==
[2019-07-11 16:57] LABS: ALBUMIN 3.3 GM/DL (3.2-5.2); ALT/SGPT 14 U/L (12-78); BILIRUBIN,TOTAL 0.3 MG/DL (0.2-1.0); BLOOD UREA NITROGEN 10 MG/DL (7-18); C REACTIVE PROTEIN QUANTITATIV 2.71 MG/DL (0.00-0.30); CALCIUM LEVEL 9.1 MG/DL (8.8-10.2); CARBON DIOXIDE LEVEL 29 MEQ/L (21-32); CHLORIDE LEVEL 98 MEQ/L (98-107); CREATININE FOR GFR 1.02 MG/DL (0.70-1.30); GLOMERULAR FILTRATION RATE > 60.0 (>49); GLUCOSE, FASTING 139 MG/DL (70-100); POTASSIUM SERUM 3.8 MEQ/L (3.5-5.1); SODIUM LEVEL 134 MEQ/L (136-145); TOTAL PROTEIN 7.1 GM/DL (6.4-8.2)
[2019-07-11 16:59] LABS: BASO % 0.4 % (0.0-1.0); EOS # 0.1 10^3/uL (0.0-0.5); EOS % 0.9 % (0.0-3.0); HEMATOCRIT 39.1 % (42.0-52.0); HEMOGLOBIN 12.5 g/dl (13.5-17.5); LYMPH # 1.4 10^3/uL (1.5-5.0); LYMPH % 15.1 % (24.0-44.0); MEAN CORPUSCULAR HEMOGLOBIN 25.1 pg (27.0-33.0); MEAN CORPUSCULAR VOLUME 78.4 fl (80.0-96.0); MONO # 0.7 10^3/uL (0.0-0.8); MONO % 7.2 % (0.0-5.0); NEUTROPHILS # 6.8 10^3/uL (1.5-8.5); NEUTROPHILS % 75.7 % (36.0-66.0); PLATELET COUNT, AUTOMATED 416 10^3/uL (150-450); RED BLOOD COUNT 4.99 10^6/uL (4.30-6.10)
[2019-07-11 17:35] LABS: ERYTHROCYTE SEDIMENTATION RATE 49 mm/hr (0-20)
== END ==
LOC: M SFHCPLAZ 14:04
PROVIDERS: ATTEND Physician Assistant Medical
DX: M06.012 Rheumatoid arthritis without rheumatoid factor, left shoulder (principal)

== ENCOUNTER → 2019-08-16 | Outpatient (REF) | payer BC ==
[2019-08-16 11:34] LABS: ALBUMIN 3.5 GM/DL (3.2-5.2); ALT/SGPT 20 U/L (12-78); BILIRUBIN,TOTAL 0.4 MG/DL (0.2-1.0); BLOOD UREA NITROGEN 14 MG/DL (7-18); C REACTIVE PROTEIN QUANTITATIV 2.17 MG/DL (0.00-0.30); CALCIUM LEVEL 9.3 MG/DL (8.8-10.2); CARBON DIOXIDE LEVEL 27 MEQ/L (21-32); CHLORIDE LEVEL 103 MEQ/L (98-107); CREATININE FOR GFR 0.95 MG/DL (0.70-1.30); GLOMERULAR FILTRATION RATE > 60.0 (>49); GLUCOSE, FASTING 103 MG/DL (70-100); POTASSIUM SERUM 4.8 MEQ/L (3.5-5.1); SODIUM LEVEL 135 MEQ/L (136-145); TOTAL PROTEIN 7.2 GM/DL (6.4-8.2)
[2019-08-16 11:46] LABS: BASO % 0.6 % (0.0-1.0); EOS # 0.1 10^3/uL (0.0-0.5); EOS % 1.4 % (0.0-3.0); HEMATOCRIT 39.9 % (42.0-52.0); HEMOGLOBIN 12.5 g/dl (13.5-17.5); LYMPH # 1.2 10^3/uL (1.5-5.0); LYMPH % 17.7 % (24.0-44.0); MEAN CORPUSCULAR HEMOGLOBIN 24.9 pg (27.0-33.0); MEAN CORPUSCULAR HGB CONC 31.3 g/dl (32.0-36.5); MEAN CORPUSCULAR VOLUME 79.5 fl (80.0-96.0); MONO # 0.7 10^3/uL (0.0-0.8); MONO % 9.6 % (0.0-5.0); NEUTROPHILS # 4.9 10^3/uL (1.5-8.5); NEUTROPHILS % 70.3 % (36.0-66.0); PLATELET COUNT, AUTOMATED 466 10^3/uL (150-450); RED BLOOD COUNT 5.02 10^6/uL (4.30-6.10); WHITE BLOOD COUNT 6.9 10^3/uL (4.0-10.0)
[2019-08-16 12:13] LABS: ERYTHROCYTE SEDIMENTATION RATE 52 mm/hr (0-20)
== END ==
LOC: M SFHCPLAZ 09:29
PROVIDERS: ATTEND Physician Assistant Medical
DX: M06.012 Rheumatoid arthritis without rheumatoid factor, left shoulder (principal)

== ENCOUNTER → 2020-01-22 | Outpatient (REF) | payer BC ==
[2020-03-06 22:30] LABS: BLOOD UREA NITROGEN 13 MG/DL (7-18); CARBON DIOXIDE LEVEL 28 MEQ/L (21-32); CHLORIDE LEVEL 101 MEQ/L (98-107); CREATININE FOR GFR 0.85 MG/DL (0.70-1.30); GLOMERULAR FILTRATION RATE > 60.0 (>49); GLUCOSE, FASTING 126 MG/DL (70-100); PHOSPHORUS LEVEL 3.4 MG/DL (2.5-4.9); POTASSIUM SERUM 4.4 MEQ/L (3.5-5.1); SODIUM LEVEL 135 MEQ/L (136-145)
== END ==
LOC: M SFHCPLAZ 16:27
PROVIDERS: ATTEND Physician Assistant Medical
DX: R91.1 Solitary pulmonary nodule (principal); R05 Cough; R06.02 Shortness of breath

== ENCOUNTER 2020-05-12 10:45 | Emergency (ER) | payer BC ==
[~2020-05-12] VITALS: Ht 175.3 cm; Wt 50.0 kg
[2020-05-12] MEDS ORDERED: dexameTHASONE 20MG/5ML VIAL (J1100 PER 1MG) IV ONE (11:15)
[2020-05-12 11:57] LABS: BASO % 0.2 % (0.0-1.0); EOS # 0.2 10^3/uL (0.0-0.5); EOS % 1.8 % (0.0-3.0); HEMATOCRIT 27.9 % (42.0-52.0); HEMOGLOBIN 8.1 g/dl (13.5-17.5); LYMPH # 0.5 10^3/uL (1.5-5.0); LYMPH % 4.8 % (24.0-44.0); MEAN CORPUSCULAR HEMOGLOBIN 19.7 pg (27.0-33.0); MEAN CORPUSCULAR VOLUME 67.9 fl (80.0-96.0); MONO # 0.6 10^3/uL (0.0-0.8); MONO % 5.4 % (0.0-5.0); NEUTROPHILS # 9.6 10^3/uL (1.5-8.5); NEUTROPHILS % 87.3 % (36.0-66.0); PLATELET COUNT, AUTOMATED 450 10^3/uL (150-450); RED BLOOD COUNT 4.11 10^6/uL (4.30-6.10); WHITE BLOOD COUNT 11.1 10^3/uL (4.0-10.0)
[2020-05-12 12:30] LABS: ALBUMIN 2.6 GM/DL (3.2-5.2); ALT/SGPT 8 U/L (12-78); BILIRUBIN,DIRECT 0.1 MG/DL (0.0-0.2); BILIRUBIN,TOTAL 0.3 MG/DL (0.2-1.0); BLOOD UREA NITROGEN 13 MG/DL (7-18); CALCIUM LEVEL 8.9 MG/DL (8.8-10.2); CARBON DIOXIDE LEVEL 25 MEQ/L (21-32); CHLORIDE LEVEL 101 MEQ/L (98-107); CK-MB VALUE MASS 2.1 NG/ML (<3.6); CPK CREATINE PHOSPHOKINASE 32 U/L (39-308); CREATININE FOR GFR 0.74 MG/DL (0.70-1.30); GLOMERULAR FILTRATION RATE > 60.0 (>49); GLUCOSE, FASTING 115 MG/DL (70-100); MB/CK RELATIVE INDEX 6.56 (< OR =4); NT-PRO BNP 474 PG/ML (<125); POTASSIUM SERUM 3.7 MEQ/L (3.5-5.1); SODIUM LEVEL 133 MEQ/L (136-145); TOTAL PROTEIN 7.6 GM/DL (6.4-8.2); TROPONIN I < 0.02 NG/ML (< 0.10)
--- NOTE | 2020-05-12 13:51 | REP ---
INDICATION: DYSPNEA/COUGH. COMPARISON: Comparison chest x-ray November 27, 2018.. TECHNIQUE: Sitting AP portable radiograph. FINDINGS: Monitoring electrodes are seen. Oxygen delivery tubing is present. The lungs are quite hyperinflated consistent with COPD unchanged. There is aaa ill-defined nodulara opacity in the left apex overlying the anterior 2nd rib approximately 12 mm in diameter. This is felt to correspond to the stable pleural based left apical nodule seen on CT study from January 30, 2020. No pulmonary mass lesion is seen. No new infiltrate is noted. Heart is not enlarged. Aorta is tortuous. IMPRESSION: Hyperinflation consistent with a significant COPD. Left apical nodular opacity corresponding with recent CT. No acute infiltrates seen. <Electronically signed by Jeb Ruiz > 05/12/20 [id number]
[2020-05-12] MEDS ORDERED: PRED10TA2 PO (15:14)
[2020-05-12] MEDS ORDERED: [UNRECOGNIZED DRUG - OTHER] (15:17)
[2020-05-12 15:30] VITALS: BP 160/88
[2020-05-12 15:40] LABS: FERRITIN 10 NG/ML (26-388); IRON (FE) 14 UG/DL (65-175); PERCENT SATURATION 3.9 % (19.7-50.0); TOTAL IRON BINDING CAPACITY 363 UG/DL (250-450)
--- NOTE | 2020-05-12 17:05 | ECGEPIP ---
[facility] - ED Test Date: 2020-05-12 Pat Name: JV VANN Department: Room: - Gender: Male Fine Artist: ANDERSON : 1950 Requested By: JV Haywood Order Number: [id number] Reading MD: Alana Fish Measurements Intervals [place] Rate: 105 P: 79 UT: 139 QRS: 76 QRSD: 93 T: 70 QT: 339 QTc: 449 Interpretive Statements SINUS TACHYCARDIA WITH OCCASIONAL SUPRAVENTRICULAR PREMATURE COMPLEXES ABNORMAL RHYTHM ECG NO PRIOR Electronically Signed on 05-12-2020 17:05:39 EST by Alana Fish
== END 2020-05-12 16:49 | disposition home or self-care (01) ==
LOC: M ED 10:45 → EDBD 10:45 → M ED 16:49
DX: J44.1 Chronic obstructive pulmonary disease with (acute) exacerbation (principal); I10 Essential (primary) hypertension; M06.9 Rheumatoid arthritis, unspecified; F17.200 Nicotine dependence, unspecified, uncomplicated; Z88.0 Allergy status to penicillin
CPT/HCPCS: 71045; 80048; 80076; 82550; 82553; 82728; 83550; 83605; 83880; 84443; 84484; 85025; 87040; 87486; 87581; 87633; 87798; 93005; 93041; 94760; 96374; 99285; J1100

== ENCOUNTER → 2020-05-14 | Outpatient (CLI) | payer BC ==
[~2020-05-14] MED LIST changes: +PRED10TA2 PO; +[UNRECOGNIZED DRUG - OTHER]
[2020-05-14 17:10] LABS: HEMATOCRIT 30.9 % (42.0-52.0); HEMOGLOBIN 8.7 g/dl (13.5-17.5); MEAN CORPUSCULAR HEMOGLOBIN 19.5 pg (27.0-33.0); MEAN CORPUSCULAR HGB CONC 28.2 g/dl (32.0-36.5); MEAN CORPUSCULAR VOLUME 69.1 fl (80.0-96.0); PLATELET COUNT, AUTOMATED 675 10^3/uL (150-450); RED BLOOD COUNT 4.47 10^6/uL (4.30-6.10); WHITE BLOOD COUNT 16.1 10^3/uL (4.0-10.0)
== END ==
LOC: M WUC 12:55
PROVIDERS: ATTEND Internal Medicine
DX: D64.9 Anemia, unspecified (principal)

== ENCOUNTER 2020-07-18 22:10 | Inpatient (IN) | payer MEDICARE, BC ==
[~2020-07-18] VITALS: Ht 177.8 cm; Wt 49.4 kg
[2020-07-18 22:43] LABS: BASO % 0.4 % (0.0-1.0); EOS # 0.1 10^3/uL (0.0-0.5); EOS % 0.5 % (0.0-3.0); HEMATOCRIT 22.8 % (42.0-52.0); LYMPH # 0.6 10^3/uL (1.5-5.0); LYMPH % 5.3 % (24.0-44.0); MEAN CORPUSCULAR HEMOGLOBIN 17.7 pg (27.0-33.0); MEAN CORPUSCULAR HGB CONC 26.8 g/dl (32.0-36.5); MEAN CORPUSCULAR VOLUME 66.1 fl (80.0-96.0); MONO # 0.6 10^3/uL (0.0-0.8); MONO % 5.4 % (0.0-5.0); NEUTROPHILS # 9.7 10^3/uL (1.5-8.5); NEUTROPHILS % 87.3 % (36.0-66.0); PLATELET COUNT, AUTOMATED 544 10^3/uL (150-450); RED BLOOD COUNT 3.45 10^6/uL (4.30-6.10); WHITE BLOOD COUNT 11.1 10^3/uL (4.0-10.0)
[2020-07-18 22:48] LABS: HEMOGLOBIN 6.1 g/dl (13.5-17.5)
[2020-07-18 22:54] LABS: INR 1.06
[2020-07-18 23:12] LABS: ALBUMIN 2.6 GM/DL (3.2-5.2); ALT/SGPT 10 U/L (12-78); BILIRUBIN,DIRECT < 0.1 MG/DL (0.0-0.2); BILIRUBIN,TOTAL 0.2 MG/DL (0.2-1.0); BLOOD UREA NITROGEN 19 MG/DL (7-18); CALCIUM LEVEL 8.6 MG/DL (8.8-10.2); CARBON DIOXIDE LEVEL 27 MEQ/L (21-32); CHLORIDE LEVEL 105 MEQ/L (98-107); CK-MB VALUE MASS 1.6 NG/ML (<3.6); CPK CREATINE PHOSPHOKINASE 28 U/L (39-308); CREATININE FOR GFR 1.26 MG/DL (0.70-1.30); GLOMERULAR FILTRATION RATE > 60.0 (>49); GLUCOSE, FASTING 141 MG/DL (70-100); LIPASE 92 U/L (73-393); MB/CK RELATIVE INDEX 5.71 (< OR =4); POTASSIUM SERUM 3.9 MEQ/L (3.5-5.1); SODIUM LEVEL 139 MEQ/L (136-145); TOTAL PROTEIN 6.7 GM/DL (6.4-8.2); TROPONIN I 0.04 NG/ML (< 0.10)
--- NOTE | 2020-07-18 23:15 | REPVR ---
PROCEDURE INFORMATION: Exam: XR Chest, 1 View Exam date and time: 07/18/2020 10:58 PM Age: 70 years old Clinical indication: Chest pain; Type not specified TECHNIQUE: Imaging protocol: XR of the chest Views: 1 view. COMPARISON: OR PORTABLE CHEST X-RAY 05/12/2020 1:23 PM FINDINGS: Lungs: Pulmonary hyperinflation with increased lucency of lung. There are some calcified granulomata in the right mid lung. No focal infiltrates. Pleural spaces: Unremarkable. No pleural effusion. No pneumothorax. Heart/Mediastinum: Unremarkable. No cardiomegaly. Bones/joints: Unremarkable. IMPRESSION: 1. Suggestion of some degree of COPD with probable bullous change. 2. No acute interval process is identified since 05/12/2020. Electronically signed by: Anthony Blackburn On 07/18/2020 23:15:02 PM
[2020-07-18] MEDS ORDERED: ATRO0.063 INH (23:32)
[2020-07-18] MEDS ORDERED: ALBU83IN INH (23:32)
[2020-07-18] MEDS ORDERED: OMEP-218 PO (23:32)
[2020-07-18] MEDS ORDERED: ALBU8.5H INH (23:32)
[2020-07-18] MEDS ORDERED: ALEV220T22 PO (23:32)
[2020-07-18] MEDS ORDERED: PRED10TA2 PO (23:32)
[2020-07-18 23:55] VITALS: BP 124/61
[2020-07-19] VITALS (13 sets, daily range): BP systolic 119–162; BP diastolic 59–96
[2020-07-19] MEDS ORDERED: ACETAMINOPHEN TAB 650MG DOSE (2X325MG) PO PRN (00:15)
[2020-07-19] MEDS ORDERED: IPRATROPIUM HFA INHALER 12.9 GRAMS (ATROVENT HFA) INH PRN (00:15)
[2020-07-19] MEDS ORDERED: ALBUTEROL 90 MCG/ACT 8GM HFA INHALER INH PRN (00:15)
[2020-07-19 01:01] LABS: FERRITIN 11 NG/ML (26-388); IRON (FE) 6 UG/DL (65-175); LDH LACTATE DEHYDROGENASE 177 U/L (87-241); PERCENT SATURATION 1.6 % (19.7-50.0); TOTAL IRON BINDING CAPACITY 370 UG/DL (250-450)
--- NOTE | 2020-07-19 03:11 | HPEPDOC ---
[facility] Medical History & Physical Date of Admission Jul 19, 2020 Date of Service: Jul 19, 2020 Primary Care Physician: Aleisha Majano Attending Physician: Jose Temple MD History and Physical CHIEF COMPLAINT: Shortness of breath, dizziness, lightheadedness HISTORY OF PRESENT ILLNESS: Patient is a 70-year-old male with a past medical history significant for chronic obstructive pulmonary disease, rheumatoid arthritis and a chronic microcytic anemia since April 2018 presented to the [facility] emergency department with a complaint of shortness of breath, dizziness and lightheadedness. Patient states that he was at home and got up to go to the kitchen where he developed lightheadedness, dizziness, chest discomfort and shortness of breath. He stated that he felt that he was having a heart attack and took an aspirin. He then called EMS. He stated that the symptoms continued until EMS arrived. Per EMS report, the patient had a heart rate 180 and was noted to be in supraventricular tachycardia. The patient was given adenosine. Patient stated that he did feel better after being giving the medication. On presentation the emergency department the patient was vitally stable. Laboratory studies demonstrated an anemia with a hemoglobin of 6.1, hematocrit 22.8. On further questioning, the patient states that he occasionally gets short of breath particularly with exertion. He states that he was told this is from his COPD. Patient himself denies any blood in his stool. He denies any dark tarry stools. Denies any blood in his urine and he denies any hematemesis. The patient does follow with Aleisha Hernandez. His outpatient medical record was reviewed, which demonstrated a declining hemoglobin since April 2018. It appears that his hemoglobin back in May 2020 was 8. He has had iron studies previously, which demonstrated a microcytic anemia with iron deficiency. Patient has been offered colonoscopies outpatient, however, has declined. The patient was given blood in the emergency department and hospitalist service was consulted and the patient was admitted for further evaluation and management. PAST MEDICAL HISTORY: 1. Chronic obstructive pulmonary disease. 2. Rheumatoid arthritis. 3. Chronic microcytic anemia with iron deficiency. PAST SURGICAL HISTORY: 1. Appendectomy 2. Bilateral inguinal herniorrhaphy. 3. Right knee replacement. SOCIAL HISTORY: Patient lives at home with his . He states he is fairly independent with ADLs. He is a current smoker he is cutting back. Currently smoking 5-6 cigarettes a day. He is smoking for over 50 years and would smoke approximately 1-1/2 packs per day. He denies any IV or illicit drug use. He states he does smoke marijuana on occasion. His primary care provider's Aleisha Majano. FAMILY HISTORY: Denies any family history of GI cancers ALLERGIES: Please see below. REVIEW OF SYSTEMS: CONSTITUTIONAL: Denies Fevers, chills, unintentional weight loss or weight gain. Denies night sweats HEENT:, Denies headache denies dysphagia, odynophagia. CARDIOVASCULAR: Admits to an episode of chest discomfort. Denies any chest pressure. RESPIRATORY:. Admits to shortness of breath with exertion. Denies cough, wheezing or sputum production. GASTROINTESTINAL: Denies Abdominal pain. Denies nausea, vomiting, diarrhea or constipation. Denies any bloody stools. Denies any dark tarry stools. GENITOURINARY: Denies dysuria, denies increased frequency or urgency. Denies hematuria SKIN:. Denies any rashes or lesions. NEUROLOGICAL: Denies any changes in gait or speech. PSYCHIATRIC: Denies history of depression or anxiety. ENDOCRINE:. Denies heat intolerance or cold intolerance. Denies history of diabetes mellitus. HEMATOLOGIC/LYMPHATIC: Denies easy bruising or bleeding. Denies any history of DVT or pulmonary embolism.. HOME MEDICATIONS: Please see below. PHYSICAL EXAMINATION: VITAL SIGNS: Temperature 98, pulse 93, respiratory rate 20, blood pressure 132/70, pulse oximetry, 94 % on room air. GENERAL APPEARANCE: Patient is awake, alert and oriented. He does not appear in acute distress. He does appear somewhat cachectic and pale HEENT: Atraumatic normocephalic. Eyes are nonicteric. Trachea is midline. Mucous membranes are pink and moist. There is conjunctival pallor. CARDIOVASCULAR:. Normal S1, S2, regular rate and rhythm. Somewhat distant heart sounds No clicks rubs or murmurs auscultated. LUNGS: Clear breath sounds bilaterally somewhat diminished throughout, increased expiratory phase. Symmetric chest expansion. No wheezes rhonchi or rales. ABDOMEN: Soft, nondistended nontender. Normoactive bowel sounds. No palpable masses or organomegaly EXTREMITIES: No Edema. Full equal pulses bilateral upper and lower extremities. NEUROLOGICAL: No Focal neurological deficits. PSYCHIATRIC: Mood and Affect appear appropriate for situation. LABORATORY DATA: See below. IMAGING: PROCEDURE INFORMATION: Exam: XR Chest, 1 View Exam date and time: 07/18/2020 10:58 PM Age: 70 years old Clinical indication: Chest pain; Type not specified TECHNIQUE: Imaging protocol: XR of the chest Views: 1 view. COMPARISON: MD PORTABLE CHEST X-RAY 05/12/2020 1:23 PM FINDINGS: Lungs: Pulmonary hyperinflation with increased lucency of lung. There are some calcified granulomata in the right mid lung. No focal infiltrates. Pleural spaces: Unremarkable. No pleural effusion. No pneumothorax. Heart/Mediastinum: Unremarkable. No cardiomegaly. Bones/joints: Unremarkable. IMPRESSION: 1. Suggestion of some degree of COPD with probable bullous change. 2. No acute interval process is identified since 05/12/2020. Electronically signed by: Anthony Blackburn On 07/18/2020 23:15:02 PM MICROBIOLOGY: Please see below. ASSESSMENT: Patient is a 70-year-old male with a past medical history significant for rheumatoid arthritis, chronic obstructive pulmonary disease and a chronic microcytic anemia with iron deficiency who presented to the [facility] emergency department after suffering an episode of shortness of breath and chest discomfort found to be significantly anemic. PLAN: 1. Symptomatically anemia -Patient presented with a hemoglobin of 6.1. He stated that he had developed source of breath with exertion as well as chest discomfort. Per EMS report, he was noted to be in supraventricular tachycardia. However, there is no strips or EKG to review the demonstrate this. Patient does have a history of a chronic microcytic anemia that is believed to be secondary to iron deficiency. His hemoglobin has been downtrending since April 2018. His most recent lab study was in May 2020 was demonstrated hemoglobin of 8. The patient has reportedly refused colonoscopies in the outpatient setting. He is also not taking any iron supplementation. -Etiology of anemia is unclear. He does have iron deficiency and may have a slow GI bleed, likely lower. Patient does take naproxen as well as prednisone outpatient and therefore cannot, rule out upper GI bleed. However, patient denies any abdominal pain. -LDH, reticulocyte count, peripheral smear, iron studies currently pending -Stool for occult blood reportedly negative -Will start Protonix 40 mg IV twice a day -Will continue to trend hemoglobin and hematocrit - 2 units PRBCs ordered to transfuse now. Will transfuse for hemoglobin less than 8. -Patient on clear liquids diet currently. Will likely need endoscopy, either inpatient or outpatient. 2. Supraventricular tachycardia -Per EMS report, the patient was in supraventricular tachycardia. He had received adenosine. I have not seen any documentation of this. The EKG strips from EMS are not available for review. Not sure if the patient was actually in supraventricular tachycardia or purely sinus tachycardia. Will continue the p atient on telemetry monitoring for now. 3. Thrombocytosis -Patient has a platelet count of 544. Likely reactive thrombocytosis from his anemia. Will continue to trend 4. Acute Kidney Injury -Cr today is 1.26. Looking at previous labs from 05/2020 patients baseline is 0.8. JUNIE is likely secondary to his anemia/pre-renal. Will likely improve with PRBC infusions. Will hold off on IV fluids. Trend Cr. 5. Rheumatoid arthritis -Patient is a history of rheumatoid arthritis. He currently takes 10 mg of prednisone for this. He is also on GI prophylaxis with PPI. The past. He has been on sulfasalazine as well as methotrexate, all which can cause anemia. However, he has been off his medications for some time. 6. Chronic obstructive pulmonary disease -Patient has chronic obstructive pulmonary disease.. It is documented that he has severe advanced disease. However, he has never required supplemental oxygen. On review of his medical record. He has had maybe one COPD exacerbation however, was not hospitalized. In fact, he has never been hospitalized for a COPD exacerbation. His episodes of exertional shortness of breath over the past couple months, could be secondary to his anemia and not necessarily his COPD. Would recommend outpatient pulmonary function testing to categorize his COPD. 7. DVT prophylaxis -Teds and sequentials CODE STATUS: Patient has voiced that he would like to be DNR/DNI Vital Signs Vital Signs Date Time Temp Pulse Resp B/P (MAP) Pulse Ox O2 Delivery O2 Flow Rate FiO2 07/19/20 01:32 92 95 07/19/20 01:30 97.9 20 132/70 (90) 07/19/20 01:00 Room Air Laboratory Data Labs 24H Laboratory Tests 2 07/18/20 22:31: Immature Granulocyte % (Auto) 1.1, Neutrophils (%) (Auto) 87.3H, Lymphocytes (%) (Auto) 5.3L, Monocytes (%) (Auto) 5.4H, Eosinophils (%) (Auto) 0.5, Basophils (%) (Auto) 0.4, Neutrophils # (Auto) 9.7H, Lymphocytes # (Auto) 0.6L, Monocytes # (Auto) 0.6, Eosinophils # (Auto) 0.1, Basophils # (Auto) 0.0, Reticulocyte # (auto) 98.7H, Nucleated Red Blood Cells % (auto) 0.0, Differential Slide Review Report, Peripheral Blood Smear Path Consult PERIPHERAL SMEAR, Percent Reticulocyte Count 2.8H, Reticulocyte Hemoglobin Equivalent 14.5L, Prothrombin Time 14.0, Prothromb Time International Ratio 1.06, Anion Gap 7L, Glomerular Filtration Rate > 60.0, Calcium Level 8.6L, Iron Level 6L, Total Iron Binding Capacity 370, Transferrin % Saturation 1.6L, Ferritin 11L, Total Bilirubin 0.2, Direct Bilirubin < 0.1, Aspartate Amino Transf (AST/SGOT) 12, Alanine Aminotransferase (ALT/SGPT) 10L, Alkaline Phosphatase 90, Lactate Dehydrogenase 177, Total Creatine Kinase 28L, Creatine Kinase MB 1.6, Creatine Kinase MB Relative Index 5.71H, Troponin I 0.04, Total Protein 6.7, Albumin 2.6L, Albumin/Globulin Ratio 0.6, Lipase 92 CBC/BMP Laboratory Tests 07/18/20 22:31 Microbiology Microbiology 07/18/20 Respiratory Virus Panel (PCR) (DIAMANTE) - Final, Complete Home Medications Scheduled Omeprazole (Omeprazole) 20 Mg Capsule.dr, 20 MG PO DAILY TAKE WITH PREDNISONE Prednisone (Prednisone) 10 Mg Tablet, 10 MG PO DAILY TAKE WITH OMEPRAZOLE - HAS NOT BEEN TAKING DAILY DUE TO ITCHING Scheduled PRN Albuterol Sulf (Albuterol Sulfate) 2.5 Mg/3 Ml Vial.neb, 1 VIAL INH QID PRN for SHORTNESS OF BREATH Albuterol Sulfate (Albuterol Sulfate Hfa) 8.5 Gm Hfa.aer.ad, 2 PUFFS INH Q6H PRN for SHORTNESS OF BREATH Ipratropium [place] (Atrovent Hfa) 12.9 Gm Hfa.aer.ad, 2 PUFFS INH QID PRN for SHORTNESS OF BREATH Naproxen Sodium (Aleve) 220 Mg Tablet, 220 MG PO BID PRN for PAIN Allergies Coded Allergies: Penicillins (Verified Allergy, Intermediate, RASH, 11/29/18) A-FIB/CHADSVASC A-FIB History Current/History of A-Fib/PAF?: No BRADFORD FISCHER DO Jul 19, 2020 03:10
[2020-07-19 06:03] LABS: HEMATOCRIT 26.5 % (42.0-52.0); HEMOGLOBIN 7.8 g/dl (13.5-17.5); MEAN CORPUSCULAR HEMOGLOBIN 20.8 pg (27.0-33.0); MEAN CORPUSCULAR HGB CONC 29.4 g/dl (32.0-36.5); MEAN CORPUSCULAR VOLUME 70.7 fl (80.0-96.0); PLATELET COUNT, AUTOMATED 457 10^3/uL (150-450); RED BLOOD COUNT 3.75 10^6/uL (4.30-6.10); WHITE BLOOD COUNT 8.5 10^3/uL (4.0-10.0)
[2020-07-19 06:14] LABS: BLOOD UREA NITROGEN 20 MG/DL (7-18); CALCIUM LEVEL 8.7 MG/DL (8.8-10.2); CARBON DIOXIDE LEVEL 29 MEQ/L (21-32); CHLORIDE LEVEL 107 MEQ/L (98-107); CREATININE FOR GFR 1.12 MG/DL (0.70-1.30); FERRITIN 11 NG/ML (26-388); GLOMERULAR FILTRATION RATE > 60.0 (>49); GLUCOSE, FASTING 84 MG/DL (70-100); POTASSIUM SERUM 4.1 MEQ/L (3.5-5.1); SODIUM LEVEL 140 MEQ/L (136-145)
--- NOTE | 2020-07-19 06:30 | ECGEPIP ---
[facility] - ED Test Date: 2020-07-18 Pat Name: JV VANN Department: Room: [place] [address] Gender: Male Online Editor: SOPHIE : 1950 Requested By: Minh Emanuel Order Number: [id number] Reading MD: Michel Alcaraz Measurements Intervals [place] Rate: 108 P: 77 MT: 140 QRS: 80 QRSD: 89 T: 74 QT: 329 QTc: 442 Interpretive Statements SINUS TACHYCARDIA POSSIBLE LEFT ATRIAL ENLARGEMENT DELAYED R WAVE PROGRESSION NONSPECIFIC ST T WAVE CHANGES 05/12/[address] T WAVE CHANGES Electronically Signed on 07-19-2020 6:30:40 EST by Michel Alcaraz
[2020-07-19] MEDS ORDERED: predniSONE 10 MG TAB PO SCH (09:00)
[2020-07-19] MEDS: PANTOPRAZOLE 40MG VIAL (C9113 PER 1) IV SCH ×2 (09:38→21:19)
[2020-07-19 10:33] LABS: HEMATOCRIT 26.8 % (42.0-52.0); HEMOGLOBIN 7.8 g/dl (13.5-17.5)
--- NOTE | 2020-07-19 11:27 | IPNPDOC ---
Text Note Date of Service The patient was seen on 07/19/20. NOTE Subjective: Patient stated that he had black stool in the morning. Objective: GENERAL APPEARANCE: Pale male HEENT: no scleral icterus, no JVD, EOMI CARDIOVASCULAR: S1S2 LUNGS: CTA ABDOMEN: soft & not tender w palpitation MUSCULOSKELETAL: no cyanosis, no swelling INTEGUMENT: no generalized pallor NEUROLOGICAL: cranial nerve function from 2-12 intact intact, follows commands, speech not dysarthric ASSESSMENT: Patient is a 70-year-old male with a past medical history significant for rheumatoid arthritis, chronic obstructive pulmonary disease and a chronic microcytic anemia with iron deficiency who presented to the [facility] emergency department after suffering an episode of shortness of breath and chest discomfort found to be significantly anemic. Acute blood loss anemia No history of colonoscopy Patient refused colonoscopy in the past I talked to GI team, appreciate recommendations Patient received blood transfusion overnight Iron studies show low iron, low ferritin, low transferrin saturation Will start iron supplementation Continue Protonix IV Supraventricular tachycardia Resolved most likely secondary to found to anemia Patient has sinus rhythm now JUNIE Resolved Rheumatoid arthritis Follow-up with picker tender helper in the outpatient settings COPD Not in acute exacerbation Continue inhalers VS,Fishbone, I+O VS, Fishbone, I+O Laboratory Tests 07/18/20 22:31 07/19/20 05:24 07/19/20 09:52 Vital Signs Date Time Temp Pulse Resp B/P (MAP) Pulse Ox O2 Delivery O2 Flow Rate FiO2 07/19/20 11:13 98.7 96 18 139/87 (104) 94 Room Air I&O- Last 24 Hours up to 6 AM 07/19/20 06:00 Intake Total 1600 ml Output Total 0 ml Balance 1600 ml CAMILLA MCNEAL DO Jul 19, 2020 11:27
[2020-07-19] MEDS: IRON POLYSAC (NIFEREX) 150 MG CAP PO SCH ×2 (12:45→21:19)
[2020-07-19] MEDS ORDERED: MOM 30ML SUSPENSION UDC PO ONE (15:00)
[2020-07-19 16:22] LABS: HEMATOCRIT 28.5 % (42.0-52.0); HEMOGLOBIN 8.2 g/dl (13.5-17.5)
[2020-07-19] MEDS ORDERED: POLYETHYLENE GLYCOL (MIRALAX) 238GM BOTTLE PO ONE (17:30)
[2020-07-19 22:07] LABS: HEMATOCRIT 28.2 % (42.0-52.0); HEMOGLOBIN 8.1 g/dl (13.5-17.5)
[2020-07-20] VITALS: BP 160/92
[2020-07-20] MEDS ORDERED: ALBUTEROL SULFATE 2.5 MG/0.5 ML INH NEB SOLN INH PRN (03:30)
[2020-07-20 04:00] VITALS: BP 168/92
[2020-07-20 04:27] LABS: HEMATOCRIT 27.7 % (42.0-52.0); HEMOGLOBIN 7.8 g/dl (13.5-17.5); MEAN CORPUSCULAR HEMOGLOBIN 19.9 pg (27.0-33.0); MEAN CORPUSCULAR HGB CONC 28.2 g/dl (32.0-36.5); MEAN CORPUSCULAR VOLUME 70.7 fl (80.0-96.0); PLATELET COUNT, AUTOMATED 478 10^3/uL (150-450); RED BLOOD COUNT 3.92 10^6/uL (4.30-6.10); WHITE BLOOD COUNT 7.8 10^3/uL (4.0-10.0)
[2020-07-20 05:05] LABS: BLOOD UREA NITROGEN 15 MG/DL (7-18); CALCIUM LEVEL 8.9 MG/DL (8.8-10.2); CARBON DIOXIDE LEVEL 27 MEQ/L (21-32); CHLORIDE LEVEL 107 MEQ/L (98-107); CREATININE FOR GFR 0.83 MG/DL (0.70-1.30); GLOMERULAR FILTRATION RATE > 60.0 (>49); GLUCOSE, FASTING 83 MG/DL (70-100); SODIUM LEVEL 139 MEQ/L (136-145)
[2020-07-20] MEDS ORDERED: POLYETHYLENE GLYCOL (MIRALAX) 238GM BOTTLE PO ONE (07:00)
[2020-07-20 07:37] VITALS: BP 176/90
[2020-07-20] MEDS ORDERED: methylPREDNISolone 125MG 2ML VIAL IV STA (08:48)
[2020-07-20] MEDS: IRON POLYSAC (NIFEREX) 150 MG CAP PO SCH ×2 (08:51→21:21)
[2020-07-20] MEDS: PANTOPRAZOLE 40MG VIAL (C9113 PER 1) IV SCH ×2 (08:51→21:21)
[2020-07-20] MEDS ORDERED: SLF 3 ML SYR IV PRN (10:00)
[2020-07-20 10:01] LABS: HEMATOCRIT 30.4 % (42.0-52.0); HEMOGLOBIN 8.7 g/dl (13.5-17.5)
[2020-07-20] MEDS: IPRATROPIUM 0.5MG/ALBUTEROL 2.5MG INH SOL UD 3ML (DUONEB) NEB SCH ×3 (10:03→20:50)
[2020-07-20 10:45] LABS: FOLATE 9.1 NG/ML (>5.4)
[2020-07-20] MEDS: ADVAIR HFA 230/21MCG INHALER INH SCH ×2 (11:31→20:50)
--- NOTE | 2020-07-20 11:50 | IPNPDOC ---
Text Note Date of Service The patient was seen on 07/20/20. NOTE Subjective: Patient complains of increased shortness of breath in the morning. Objective: GENERAL APPEARANCE: Pale male HEENT: no scleral icterus, no JVD, EOMI CARDIOVASCULAR: S1S2 LUNGS: CTA ABDOMEN: soft & not tender w palpitation MUSCULOSKELETAL: no cyanosis, no swelling INTEGUMENT: no generalized pallor NEUROLOGICAL: cranial nerve function from 2-12 intact intact, follows commands, speech not dysarthric ASSESSMENT: Patient is a 70-year-old male with a past medical history significant for rheumatoid arthritis, chronic obstructive pulmonary disease and a chronic microcytic anemia with iron deficiency who presented to the [facility] emergency department after suffering an episode of shortness of breath and chest discomfort found to be significantly anemic. Acute blood loss anemia No history of colonoscopy Patient refused colonoscopy in the past I talked to GI team, appreciate recommendations Patient received blood transfusion overnight Iron studies show low iron, low ferritin, low transferrin saturation Continue iron supplementation Continue Protonix IV Hemoglobin stable Supraventricular tachycardia Resolved most likely secondary to found to anemia Patient has sinus rhythm now JUNIE Resolved Rheumatoid arthritis Follow-up with psychology fellow in the outpatient settings COPD Exacerbation IV Solu-Medrol Inhalers Incentive spirometry VS,Fishbone, I+O VS, Fishbone, I+O Laboratory Tests 07/19/20 16:05 07/19/20 21:53 07/20/20 03:59 07/20/20 09:37 Vital Signs Date Time Temp Pulse Resp B/P (MAP) Pulse Ox O2 Delivery O2 Flow Rate FiO2 07/20/20 10:07 176/90 07/20/20 07:37 97.6 98 18 97 Room Air I&O- Last 24 Hours up to 6 AM 07/20/20 06:00 Intake Total 360 ml Output Total 0 ml Balance 360 ml CAMILLA MCNEAL DO Jul 20, 2020 11:50
[2020-07-20 11:59] VITALS: BP 162/97
[2020-07-20] MEDS: SLF 3 ML SYR IV SCH ×2 (14:11→21:21)
[2020-07-20 15:52] VITALS: BP 158/86
[2020-07-20] MEDS ORDERED: propofoL 200 MG/20 ML VIAL As Ordered ONE (18:33)
[2020-07-20] MEDS ORDERED: LIDOCAINE 2% 100MG/5ML SDV (FOR ANES.) As Ordered ONE (18:33)
--- NOTE | 2020-07-20 18:40 | ROOR ---
Patient Name: Elie Beal Procedure Date: 07/20/2020 5:14 PM Date of : 1950 Age: 70 Gender: Male Note Status: Finalized Procedure: Upper GI endoscopy Indications: Iron deficiency anemia Providers: Elie TINSLEY MD Referring MD: 2. Inpatient 2. Inpatient Requesting Provider: Medicines: Monitored Anesthesia Care Complications: No immediate complications. Procedure: Pre-Anesthesia Assessment: - The heart rate, respiratory rate, oxygen saturations, blood pressure, adequacy of pulmonary ventilation, and response to care were monitored throughout the procedure. The Endoscope was introduced through the mouth, and advanced to the third part of duodenum. The upper GI endoscopy was accomplished without difficulty. The patient tolerated the procedure well. Findings: A widely patent schatzki ring was seen and fractured/biopsied with biopsy forcep. The esophagus was otherwise normal. The entire examined stomach was normal. A small hiatal hernia was present. A single 5 mm angioectasia without bleeding was found in the second portion of the duodenum. For hemostasis, one hemostatic clip was successfully placed. The exam of the duodenum was otherwise normal. Biopsies for histology were taken with a cold forceps in the second portion of the duodenum and in the third portion of the duodenum for evaluation of celiac disease. Impression: - A single non-bleeding angioectasia in the duodenum. Clip was placed. - The duodenum is otherwise normal. Biopsies were taken with a cold forceps for evaluation of celiac disease. - Non obstructive Schatzki ring. Biopsied to fracture the ring. - Otherwise normal esophagus. - Normal stomach with a small hiatal hernia. Recommendation: - No ibuprofen, naproxen, or other non-steroidal anti-inflammatory drugs. - Recommend an iron supplement. - Telephone endoscopist for pathology results in 2 weeks. - Return to primary care physician as previously scheduled. Procedure Code(s): --- Professional --- 80362, 59, Esophagogastroduodenoscopy, flexible, transoral; with control of bleeding, any method 87573, Esophagogastroduodenoscopy, flexible, transoral; with biopsy, single or multiple Diagnosis Code(s): --- Professional --- D50.9, Iron deficiency anemia, unspecified K31.819, Angiodysplasia of stomach and duodenum without bleeding K44.9, Diaphragmatic hernia without obstruction or gangrene CPT copyright 2019 [employer] [employer]. All rights reserved. The codes documented in this report are preliminary and upon sushi chef review may be revised to meet current compliance requirements. Elie Tinsley MD Elie TINSLEY MD 07/20/2020 6:39:41 PM Electronically signed by Elie TINSLEY MD Number of Addenda: 0 Note Initiated On: 07/20/2020 5:14 PM Estimated Blood Loss: Estimated blood loss: none.
--- NOTE | 2020-07-20 18:48 | ROOR ---
Patient Name: Elie Beal Procedure Date: 07/20/2020 6:40 PM Date of : 1950 Age: 70 Gender: Male Note Status: Finalized Procedure: Colonoscopy Indications: Iron deficiency anemia Providers: Elie TINSLEY MD Referring MD: 2. Inpatient 2. Inpatient Requesting Provider: Medicines: Monitored Anesthesia Care Complications: No immediate complications. Procedure: Pre-Anesthesia Assessment: - The heart rate, respiratory rate, oxygen saturations, blood pressure, adequacy of pulmonary ventilation, and response to care were monitored throughout the procedure. The Colonoscope was introduced through the anus and advanced to 10 cm into the ileum. The colonoscopy was somewhat difficult due to unsatisfactory bowel prep. Successful completion of the procedure was aided by lavage. The patient tolerated the procedure well. The quality of the bowel preparation was suboptimal, but adequate to r/o lesions >8 mm. Findings: (EXAM: Complete, PREP: Suboptimal) Hemorrhoids were found on perianal exam. External and internal hemorrhoids were found during retroflexion. The hemorrhoids were large. A 5 mm polyp was found in the recto-sigmoid colon. The polyp was semi-pedunculated. The polyp was removed with a cold snare. Resection and retrieval were complete. To prevent bleeding after the polypectomy, two hemostatic clips were successfully placed. A 8 mm polyp was found in the splenic flexure. The polyp was flat. The polyp was removed with a cold snare. Resection and retrieval were complete. Many small and large-mouthed diverticula were found in the sigmoid colon, descending colon and transverse colon. Retroflexion in the right colon was performed. The exam was otherwise normal throughout the examined colon. The terminal ileum appeared normal. Impression: - (EXAM: Complete, PREP: Suboptimal) - Large prolapsing internal hemorrhoids. - One 5 mm polyp at the recto-sigmoid colon, removed with a cold snare. Resected and retrieved. Clips were placed. - One 8 mm polyp at the splenic flexure, removed with a cold snare. Resected and retrieved. - Severe diverticulosis in the sigmoid colon, in the descending colon and in the transverse colon. - The Colon and examined portion of the ileum are otherwise normal. Recommendation: - Repeat colonoscopy in 1 year because the bowel preparation was suboptimal. - Return to referring physician as previously scheduled. - No ibuprofen, naproxen, or other non-steroidal anti-inflammatory drugs. - Recommend an iron supplement. Procedure Code(s): --- Professional --- 13731, Colonoscopy, flexible; with removal of tumor(s), polyp(s), or other lesion(s) by snare technique Diagnosis Code(s): --- Professional --- K57.30, Diverticulosis of large intestine without perforation or abscess without bleeding D50.9, Iron deficiency anemia, unspecified K63.5, Polyp of colon K64.8, Other hemorrhoids CPT copyright 2019 [employer]. All rights reserved. The codes documented in this report are preliminary and upon electric shovel operator review may be revised to meet current compliance requirements. Elie Tinsley MD Elie TINSLEY MD 07/20/2020 6:47:56 PM Electronically signed by Elie TINSLEY MD Number of Addenda: 0 Note Initiated On: 07/20/2020 6:40 PM Estimated Blood Loss: Estimated blood loss: none.
[2020-07-20 19:10] VITALS: BP 150/82
[2020-07-20] MEDS: methylPREDNISolone 125MG 2ML VIAL IV SCH (19:12)
[2020-07-20] MEDS ORDERED: ONDANSETRON 4MG/2ML VIAL IV PRN (19:30)
[2020-07-21] VITALS: BP 145/92
[2020-07-21] MEDS: methylPREDNISolone 125MG 2ML VIAL IV SCH (00:09)
[2020-07-21] MEDS: IPRATROPIUM 0.5MG/ALBUTEROL 2.5MG INH SOL UD 3ML (DUONEB) NEB SCH ×2 (02:00→07:54)
[2020-07-21 04:00] VITALS: BP 146/94
[2020-07-21] MEDS: SLF 3 ML SYR IV SCH (05:11)
[2020-07-21 05:33] LABS: HEMATOCRIT 28.2 % (42.0-52.0); HEMOGLOBIN 8.1 g/dl (13.5-17.5); MEAN CORPUSCULAR HEMOGLOBIN 19.9 pg (27.0-33.0); MEAN CORPUSCULAR HGB CONC 28.7 g/dl (32.0-36.5); MEAN CORPUSCULAR VOLUME 69.3 fl (80.0-96.0); PLATELET COUNT, AUTOMATED 501 10^3/uL (150-450); RED BLOOD COUNT 4.07 10^6/uL (4.30-6.10)
[2020-07-21 05:58] LABS: BLOOD UREA NITROGEN 24 MG/DL (7-18); CALCIUM LEVEL 9.1 MG/DL (8.8-10.2); CARBON DIOXIDE LEVEL 24 MEQ/L (21-32); CHLORIDE LEVEL 104 MEQ/L (98-107); CREATININE FOR GFR 0.94 MG/DL (0.70-1.30); GLOMERULAR FILTRATION RATE > 60.0 (>49); GLUCOSE, FASTING 146 MG/DL (70-100); SODIUM LEVEL 137 MEQ/L (136-145)
[2020-07-21 07:52] VITALS: BP 158/86
[2020-07-21] MEDS: ADVAIR HFA 230/21MCG INHALER INH SCH (07:54)
[2020-07-21] MEDS: IRON POLYSAC (NIFEREX) 150 MG CAP PO SCH (08:18)
[2020-07-21 08:19] VITALS: BP 158/86
[2020-07-21] MEDS ORDERED: predniSONE 20 MG TAB PO SCH (09:00)
[2020-07-21] MEDS ORDERED: OMEPRAZOLE 20 MG CAP PO SCH (09:00)
[2020-07-21] MEDS ORDERED: LISI20TA33 PO (10:41)
[2020-07-21] MEDS ORDERED: ADVA230A INH (10:41)
[2020-07-21] MEDS ORDERED: FERR325T81 PO (10:41)
[2020-07-21 11:50] VITALS: BP 150/78
--- NOTE | 2020-07-21 15:16 | DS.PDOC ---
Discharge Summary General Date of Admission Jul 19, 2020 at 00:10 Date of Discharge 07/21/20 Discharge Summary PROCEDURES PERFORMED DURING STAY: EGD and colonoscopy ADMITTING DIAGNOSES: Supraventricular tachycardia Acute blood loss anemia JUNIE Rheumatoid arthritis COPD Exacerbation DISCHARGE DIAGNOSES: Supraventricular tachycardia Acute blood loss anemia JUNIE Rheumatoid arthritis COPD Exacerbation COMPLICATIONS/CHIEF COMPLAINT: Sympomatic Anemia, Tachyarrhythmia. HISTORY OF PRESENT ILLNESS: ASSESSMENT: Patient is a 70-year-old male with a past medical history significant for rheumatoid arthritis, chronic obstructive pulmonary disease and a chronic microcytic anemia with iron deficiency who presented to the [facility] emergency department after suffering an episode of shortness of breath and chest discomfort found to be significantly anemic. HOSPITAL COURSE: During hospital stay the following issues addressed Acute blood loss anemia No history of colonoscopy Patient refused colonoscopy in the past Patient received blood transfusion overnight Iron studies show low iron, low ferritin, low transferrin saturation Continue iron supplementation Continue Protonix IV Hemoglobin stable EGD and colonoscopy was done please see results below Supraventricular tachycardia Resolved most likely secondary to found to anemia Patient has sinus rhythm now JUNIE Resolved Rheumatoid arthritis Follow-up with director stars in the outpatient settings COPD Exacerbation IV Solu-Medrol Inhalers Incentive spirometry DISCHARGE MEDICATIONS: Please see below. ALLERGIES: Please see below. PHYSICAL EXAMINATION ON DISCHARGE: VITAL SIGNS: Please see below. GENERAL APPEARANCE: Pale male HEENT: no scleral icterus, no JVD, EOMI CARDIOVASCULAR: S1S2 LUNGS: CTA ABDOMEN: soft & not tender w palpitation MUSCULOSKELETAL: no cyanosis, no swelling INTEGUMENT: no generalized pallor NEUROLOGICAL: cranial nerve function from 2-12 intact intact, follows commands, speech not dysarthric LABORATORY DATA: Please see below. IMAGING: Findings: (EXAM: Complete, PREP: Suboptimal) Hemorrhoids were found on perianal exam. External and internal hemorrhoids were found during retroflexion. The hemorrhoids were large. A 5 mm polyp was found in the recto-sigmoid colon. The polyp was semi-pedunculated. The polyp was removed with a cold snare. Resection and retrieval were complete. To prevent bleeding after the polypectomy, two hemostatic clips were successfully placed. A 8 mm polyp was found in the splenic flexure. The polyp was flat. The polyp was removed with a cold snare. Resection and retrieval were complete. Many small and large-mouthed diverticula were found in the sigmoid colon, descending colon and transverse colon. Retroflexion in the right colon was performed. The exam was otherwise normal throughout the examined colon. The terminal ileum appeared normal. Impression: - (EXAM: Complete, PREP: Suboptimal) - Large prolapsing internal hemorrhoids. - One 5 mm polyp at the recto-sigmoid colon, removed with a cold snare. Resected and retrieved. Clips were placed. - One 8 mm polyp at the splenic flexure, removed with a cold snare. Resected and retrieved. - Severe diverticulosis in the sigmoid colon, in the descending colon and in the transverse colon. - The Colon and examined portion of the ileum are otherwise normal. Recommendation: - Repeat colonoscopy in 1 year because the bowel preparation was suboptimal. - Return to referring physician as previously scheduled. - No ibuprofen, naproxen, or other non-steroidal anti-inflammatory drugs. - Recommend an iron supplement. Procedure Code(s): --- Professional --- 94354, Colonoscopy, flexible; with removal of tumor(s), polyp(s), or other lesion(s) by snare technique Procedure: Pre-Anesthesia Assessment: - The heart rate, respiratory rate, oxygen saturations, blood pressure, adequacy of pulmonary ventilation, and response to care were monitored throughout the procedure. The Endoscope was introduced through the mouth, and advanced to the third part of duodenum. The upper GI endoscopy was accomplished without difficulty. The patient tolerated the procedure well. Findings: A widely patent schatzki ring was seen and fractured/biopsied with biopsy forcep. The esophagus was otherwise normal. The entire examined stomach was normal. A small hiatal hernia was present. A single 5 mm angioectasia without bleeding was found in the second portion of the duodenum. For hemostasis, one hemostatic clip was successfully placed. The exam of the duodenum was otherwise normal. Biopsies for histology were taken with a cold forceps in the second portion of the duodenum and in the third portion of the duodenum for evaluation of celiac disease. Impression: - A single non-bleeding angioectasia in the duodenum. Clip was placed. - The duodenum is otherwise normal. Biopsies were taken with a cold forceps for evaluation of celiac disease. - Non obstructive Schatzki ring. Biopsied to fracture the ring. - Otherwise normal esophagus. - Normal stomach with a small hiatal hernia. Recommendation: - No ibuprofen, naproxen, or other non-steroidal anti-inflammatory drugs. - Recommend an iron supplement. - Telephone endoscopist for pathology results in 2 weeks. - Return to primary care physician as previously scheduled. Procedure Code(s): --- Professional --- 49683, 59, Esophagogastroduodenoscopy, flexible, transoral; with control of bleeding, any method 66864, Esophagogastroduodenoscopy, flexible, transoral; with biopsy, single or multiple Diagnosis Code(s): --- Professional --- D50.9, Iron deficiency anemia, unspecified K31.819, Angiodysplasia of stomach and duodenum without bleeding K44.9, Diaphragmatic hernia without obstruction or gangrene PROGNOSIS: Fair ACTIVITY: [As tolerated]. DIET: Cardiac DISPOSITION: 01 Home, Self-Care. ITEMS TO FOLLOWUP ON ON OUTPATIENT: With GI team and PCP DISCHARGE CONDITION: [Stable]. TIME SPENT ON DISCHARGE: Greater than 30minutes. Vital Signs/I&Os Vital Signs Date Time Temp Pulse Resp B/P (MAP) Pulse Ox O2 Delivery O2 Flow Rate FiO2 07/21/20 11:50 98.4 97 18 150/78 (102) 92 Room Air 07/21/20 07:52 2.0 I&O- Last 24 Hours up to 6 AM 07/21/20 06:00 Intake Total 150 ml Output Total 0 ml Balance 150 ml Laboratory Data Labs 24H Laboratory Tests 2 07/21/20 05:14: Nucleated Red Blood Cells % (auto) 0.0, Anion Gap 9, Glomerular Filtration Rate > 60.0, Calcium Level 9.1 CBC/BMP Laboratory Tests 07/21/20 05:14 Microbiology Microbiology 07/19/20 Stool Occult Blood (DIAMANTE) - Final, Complete 07/18/20 Respiratory Virus Panel (PCR) (DIAMANTE) - Final, Complete Discharge Medications Scheduled Ferrous Sulfate (Iron) 325 Mg Tablet, 1 TAB PO BID Fluticasone Propion/Salmeterol (Advair Hfa 230-21 Mcg Inhaler) 12 Gm Hfa.aer.ad, 2 PUFF INH RBID Lisinopril (Lisinopril) 20 Mg Tablet, 20 MG PO DAILY Omeprazole (Omeprazole) 20 Mg Capsule.dr, 20 MG PO DAILY, (Reported) TAKE WITH PREDNISONE Prednisone (Prednisone) 10 Mg Tablet, 10 MG PO DAILY, (Reported) TAKE WITH OMEPRAZOLE - HAS NOT BEEN TAKING DAILY DUE TO ITCHING Scheduled PRN Albuterol Sulf (Albuterol Sulfate) 2.5 Mg/3 Ml Vial.neb, 1 VIAL INH QID PRN for SHORTNESS OF BREATH, (Reported) Albuterol Sulfate (Albuterol Sulfate Hfa) 8.5 Gm Hfa.aer.ad, 2 PUFFS INH Q6H PRN for SHORTNESS OF BREATH, (Reported) Ipratropium [place] (Atrovent Hfa) 12.9 Gm Hfa.aer.ad, 2 PUFFS INH QID PRN for SHORTNESS OF BREATH, (Reported) Allergies Coded Allergies: Penicillins (Verified Allergy, Intermediate, RASH, 11/29/18) CAMILLA MCNEAL DO Jul 21, 2020 15:16
== END 2020-07-21 12:24 | disposition home or self-care (01) | DRG 812 ==
LOC: M ED 22:10 → M ED INP 07-19 00:10 → M PCU 07-19 01:46
PROVIDERS: ADMIT Family Medicine; ATTEND Internal Medicine
PROC: 30233N1 Transfusion of Nonautologous Red Blood Cells into Peripheral Vein, Percutaneous Approach (ICD-10-PCS; 2020-07-18)
PROC: 0DB98ZX Excision of Duodenum, Via Natural or Artificial Opening Endoscopic, Diagnostic (ICD-10-PCS; 2020-07-20)
PROC: 0DB38ZX Excision of Lower Esophagus, Via Natural or Artificial Opening Endoscopic, Diagnostic (ICD-10-PCS; 2020-07-20)
PROC: 0DBL8ZX Excision of Transverse Colon, Via Natural or Artificial Opening Endoscopic, Diagnostic (ICD-10-PCS; 2020-07-20)
PROC: 0DBN8ZX Excision of Sigmoid Colon, Via Natural or Artificial Opening Endoscopic, Diagnostic (ICD-10-PCS; 2020-07-20)
PROC: 0W3P8ZZ Control Bleeding in Gastrointestinal Tract, Via Natural or Artificial Opening Endoscopic (ICD-10-PCS; principal; 2020-07-20 15:45)
DX: D62 Acute posthemorrhagic anemia (principal); N17.9 Acute kidney failure, unspecified; J44.1 Chronic obstructive pulmonary disease with (acute) exacerbation; I47.1 Supraventricular tachycardia; M06.9 Rheumatoid arthritis, unspecified; F17.210 Nicotine dependence, cigarettes, uncomplicated; K44.9 Diaphragmatic hernia without obstruction or gangrene; K22.2 Esophageal obstruction; K31.819 Angiodysplasia of stomach and duodenum without bleeding; Z66 Do not resuscitate; K63.5 Polyp of colon; K57.30 Diverticulosis of large intestine without perforation or abscess without bleeding; K64.8 Other hemorrhoids; Z90.49 Acquired absence of other specified parts of digestive tract; Z96.651 Presence of right artificial knee joint; Z79.52 Long term (current) use of systemic steroids; Z79.899 Other long term (current) drug therapy; Z88.0 Allergy status to penicillin

== ENCOUNTER → 2020-07-28 | Outpatient (REF) | payer BC ==
[~2020-07-28] MED LIST changes: +ADVA230A INH; +ALBU8.5H INH; +ALBU83IN INH; +ALEV220T22 PO; +ATRO0.063 INH; +FERR325T81 PO; +LISI20TA33 PO; +OMEP-218 PO
[2020-07-28 18:04] LABS: BASO # 0.1 10^3/uL (0.0-0.2); BASO % 0.5 % (0.0-1.0); EOS % 0.2 % (0.0-3.0); HEMATOCRIT 38.7 % (42.0-52.0); HEMOGLOBIN 10.6 g/dl (13.5-17.5); LYMPH # 0.7 10^3/uL (1.5-5.0); LYMPH % 4.9 % (24.0-44.0); MEAN CORPUSCULAR HEMOGLOBIN 20.1 pg (27.0-33.0); MEAN CORPUSCULAR HGB CONC 27.4 g/dl (32.0-36.5); MEAN CORPUSCULAR VOLUME 73.3 fl (80.0-96.0); MONO # 0.4 10^3/uL (0.0-0.8); MONO % 2.6 % (2.0-8.0); NEUTROPHILS # 13.1 10^3/uL (1.5-8.5); NEUTROPHILS % 89.9 % (36.0-66.0); PLATELET COUNT, AUTOMATED 500 10^3/uL (150-450); RED BLOOD COUNT 5.28 10^6/uL (4.30-6.10); WHITE BLOOD COUNT 14.6 10^3/uL (4.0-10.0)
[2020-07-28 18:06] LABS: ALBUMIN 3.2 GM/DL (3.2-5.2); ALT/SGPT 14 U/L (12-78); BILIRUBIN,TOTAL 0.3 MG/DL (0.2-1.0); BLOOD UREA NITROGEN 18 MG/DL (7-18); CALCIUM LEVEL 9.4 MG/DL (8.8-10.2); CARBON DIOXIDE LEVEL 29 MEQ/L (21-32); CHLORIDE LEVEL 101 MEQ/L (98-107); CREATININE FOR GFR 1.08 MG/DL (0.70-1.30); GLOMERULAR FILTRATION RATE > 60.0 (>49); GLUCOSE, FASTING 126 MG/DL (70-100); POTASSIUM SERUM 5.1 MEQ/L (3.5-5.1); SODIUM LEVEL 136 MEQ/L (136-145)
== END ==
LOC: M SFHCPLAZ 14:52
PROVIDERS: ATTEND Physician Assistant Medical
DX: K92.2 Gastrointestinal hemorrhage, unspecified (principal); N17.9 Acute kidney failure, unspecified

== ENCOUNTER → 2020-08-20 | Outpatient (REF) | payer BC ==
[2020-08-20 14:35] LABS: BASO # 0.1 10^3/uL (0.0-0.2); BASO % 0.8 % (0.0-1.0); EOS # 0.1 10^3/uL (0.0-0.5); EOS % 0.9 % (0.0-3.0); HEMATOCRIT 42.8 % (42.0-52.0); HEMOGLOBIN 13.2 g/dl (13.5-17.5); LYMPH # 0.6 10^3/uL (1.5-5.0); LYMPH % 5.2 % (24.0-44.0); MEAN CORPUSCULAR HEMOGLOBIN 24.6 pg (27.0-33.0); MEAN CORPUSCULAR HGB CONC 30.8 g/dl (32.0-36.5); MEAN CORPUSCULAR VOLUME 79.7 fl (80.0-96.0); MONO # 0.6 10^3/uL (0.0-0.8); MONO % 4.7 % (2.0-8.0); NEUTROPHILS # 10.4 10^3/uL (1.5-8.5); NEUTROPHILS % 87.2 % (36.0-66.0); PLATELET COUNT, AUTOMATED 327 10^3/uL (150-450); RED BLOOD COUNT 5.37 10^6/uL (4.30-6.10); WHITE BLOOD COUNT 11.9 10^3/uL (4.0-10.0)
[2020-08-20 14:42] LABS: HEMATOCRIT 43.1 % (42.0-52.0)
[2020-08-20 15:00] LABS: FERRITIN 32 NG/ML (26-388); IRON (FE) 239 UG/DL (65-175)
[2020-08-20 15:11] LABS: PLATELET ESTIMATE NORMAL (NORMAL)
[2020-08-20 15:14] LABS: OVALOCYTES 2+
[2020-08-20 15:16] LABS: ANISOCYTOSIS 2+; MICROCYTOSIS 2+
== END ==
LOC: M SFHCPLAZ 12:00
PROVIDERS: ATTEND Physician Assistant Medical
DX: D64.9 Anemia, unspecified (principal)

== ENCOUNTER → 2020-11-19 | Outpatient (REF) | payer BC ==
[2020-11-19 14:09] LABS: BASO # 0.1 10^3/uL (0.0-0.2); BASO % 0.5 % (0.0-1.0); EOS % 0.2 % (0.0-3.0); HEMATOCRIT 51.2 % (42.0-52.0); HEMOGLOBIN 17.1 g/dl (13.5-17.5); LYMPH # 0.8 10^3/uL (1.5-5.0); LYMPH % 5.9 % (24.0-44.0); MEAN CORPUSCULAR HEMOGLOBIN 30.4 pg (27.0-33.0); MEAN CORPUSCULAR HGB CONC 33.4 g/dl (32.0-36.5); MEAN CORPUSCULAR VOLUME 91.1 fl (80.0-96.0); MONO # 0.8 10^3/uL (0.0-0.8); NEUTROPHILS % 86.6 % (36.0-66.0); PLATELET COUNT, AUTOMATED 256 10^3/uL (150-450); RED BLOOD COUNT 5.62 10^6/uL (4.30-6.10); WHITE BLOOD COUNT 12.7 10^3/uL (4.0-10.0)
[2020-11-19 14:44] LABS: ALBUMIN 3.4 GM/DL (3.2-5.2); ALT/SGPT 21 U/L (12-78); BILIRUBIN,TOTAL 0.7 MG/DL (0.2-1.0); BLOOD UREA NITROGEN 15 MG/DL (7-18); CALCIUM LEVEL 9.1 MG/DL (8.8-10.2); CARBON DIOXIDE LEVEL 28 MEQ/L (21-32); CHLORIDE LEVEL 98 MEQ/L (98-107); CREATININE FOR GFR 0.81 MG/DL (0.70-1.30); FERRITIN 63 NG/ML (26-388); GLOMERULAR FILTRATION RATE > 60.0 (>49); GLUCOSE, FASTING 75 MG/DL (70-100); IRON (FE) 67 UG/DL (65-175); POTASSIUM SERUM 4.2 MEQ/L (3.5-5.1); SODIUM LEVEL 135 MEQ/L (136-145)
== END ==
LOC: M SFHCPLAZ 11:46
PROVIDERS: ATTEND Physician Assistant Medical
DX: M06.012 Rheumatoid arthritis without rheumatoid factor, left shoulder (principal); D64.9 Anemia, unspecified

== ENCOUNTER → 2020-11-24 | Outpatient (CLI) | payer BC ==
[~2020-11-24] MED LIST changes: +E-Z-PAQUE 96% w/w SUSP 176GM BTL As Ordered ONE
--- NOTE | 2020-11-24 18:54 | REP ---
INDICATION: GI BLEED. COMPARISON: None TECHNIQUE: This procedure was performed by Chani Michaels [facility], under the direct supervision of Dr. Stovall. Images were reviewed with Dr. Stovall prior to dictation. Liquid barium was administered and the barium column was followed through the small bowel to the level of the terminal ileum. FINDINGS: The route sales delivery drivers supervisor film shows no organomegaly or pathological masses. The intestinal gas pattern is unremarkable. Small bowel transit time is approximately 120 minutes. During fluoroscopy gentle palpation shows all loops are freely movable and pliable. There is no fixed angulated loops. The small bowel mucosal pattern is normal in course and caliber. There is no transition to suggest a partial small bowel obstruction. Spot filming of the terminal ileum shows it to be unremarkable. IMPRESSION: Unremarkable small bowel follow-through. 0.4 minutes of fluoroscopy time was utilized for this procedure. Some fluoroscopic images are performed with last image hold technology. These images require no additional radiation. <Electronically signed by Chani Michaels > 11/24/20 [id number] <Electronically signed by Jaswinder Stovall > 11/24/20 [id number]
== END ==
LOC: M RAD 08:09
PROVIDERS: ATTEND Nurse Practitioner Family
DX: K92.2 Gastrointestinal hemorrhage, unspecified (principal)

== ENCOUNTER → 2021-02-24 | Outpatient (CLI) | payer BC ==
[~2021-02-24] MED LIST changes: -E-Z-PAQUE 96% w/w SUSP 176GM BTL As Ordered ONE
[2021-02-24 14:08] LABS: BASO # 0.1 10^3/uL (0.0-0.2); BASO % 0.6 % (0.0-1.0); EOS # 0.1 10^3/uL (0.0-0.5); EOS % 0.4 % (0.0-3.0); HEMATOCRIT 46.1 % (42.0-52.0); HEMOGLOBIN 15.4 g/dl (13.5-17.5); LYMPH % 6.9 % (24.0-44.0); MEAN CORPUSCULAR HEMOGLOBIN 30.6 pg (27.0-33.0); MEAN CORPUSCULAR HGB CONC 33.4 g/dl (32.0-36.5); MEAN CORPUSCULAR VOLUME 91.5 fl (80.0-96.0); MONO # 0.7 10^3/uL (0.0-0.8); MONO % 5.1 % (2.0-8.0); NEUTROPHILS # 11.9 10^3/uL (1.5-8.5); NEUTROPHILS % 85.5 % (36.0-66.0); PLATELET COUNT, AUTOMATED 438 10^3/uL (150-450); RED BLOOD COUNT 5.04 10^6/uL (4.30-6.10); WHITE BLOOD COUNT 13.9 10^3/uL (4.0-10.0)
[2021-02-24 14:38] LABS: ERYTHROCYTE SEDIMENTATION RATE 18 mm/hr (0-20)
[2021-02-24 14:48] LABS: BLOOD UREA NITROGEN 10 MG/DL (7-18); C REACTIVE PROTEIN QUANTITATIV 1.03 MG/DL (0.00-0.30); CALCIUM LEVEL 9.4 MG/DL (8.8-10.2); CARBON DIOXIDE LEVEL 27 MEQ/L (21-32); CHLORIDE LEVEL 97 MEQ/L (98-107); CREATININE FOR GFR 0.84 MG/DL (0.70-1.30); FERRITIN 114 NG/ML (26-388); GLOMERULAR FILTRATION RATE > 60.0 (>49); GLUCOSE, FASTING 78 MG/DL (70-100); IRON (FE) 63 UG/DL (65-175); POTASSIUM SERUM 4.6 MEQ/L (3.5-5.1); SODIUM LEVEL 134 MEQ/L (136-145)
== END ==
LOC: M PLALAB 11:30
PROVIDERS: ATTEND Physician Assistant Medical
DX: D64.9 Anemia, unspecified (principal)

== ENCOUNTER → 2021-02-25 | Outpatient (CLI) | payer BC ==
--- NOTE | 2021-02-25 16:23 | REP ---
INDICATION: GI BLEED COMPARISON: None TECHNIQUE: Axial noncontrast images from the lung bases to the pubic symphysis with coronal and sagittal reformations. This CT examination was performed using the following dose reduction techniques: Automated exposure control, adjustment of mA and/or kv according to the patient's size, and use of iterative reconstruction technique. FINDINGS: Lung bases demonstrate bronchiectasis and emphysematous changes. There is an ill-defined area of density along the subpleural medial right lower lobe suggesting chronic rounded atelectasis. Liver, spleen, pancreas, gallbladder, bilateral adrenal glands and kidneys are normal. Incidental 3 mm calcification in the right renal pelvis may represent nonobstructing phlebolith or vascular calcification. The enteric system is without obstruction or definite acute inflammatory process. Extensive colonic diverticulosis noted throughout the colon without obvious acute diverticulitis.. Pelvis bladder with suspected diverticulum along with mildly prominent prostate gland/left seminal vesicle. No ascites. No free air. No adenopathy. No focal inflammatory stranding. Atherosclerotic changes to the aorta and vasculature noted without aneurysm. Musculoskeletal structures are intact and without acute osseous abnormality. IMPRESSION: 1. Chronic appearing changes at the lung bases and specifically the medial right lower lobe as described above. 2. Extensive colonic diverticulosis without obvious acute process. 3. Left-sided bladder diverticulum and mildly prominent prostate/seminal vesicles may warrant further investigation. 4. No free air. No adenopathy. No ascites. 0 <Electronically signed by Bernabe Prakash > 02/25/21 [id number]
== END ==
LOC: M PLAIMG 12:43
PROVIDERS: ATTEND Physician Assistant Medical
DX: K92.2 Gastrointestinal hemorrhage, unspecified (principal)

== ENCOUNTER → 2021-04-06 | Outpatient (CLI) | payer BC ==
--- NOTE | 2021-04-06 14:00 | REP ---
INDICATION: GASTRO-ESOPHAGEAL REFLUX DISEASE WITHOUT ESOPHAGITIS. COMPARISON: None. TECHNIQUE: AP and lateral views FINDINGS: There is mild to moderate anterior disc space narrowing at every level. There is a [id number] levoconvex lumbar curve. The pedicles are intact bilaterally. Vertebral body height is within normal limits. IMPRESSION: Chronic changes as described above. <Electronically signed by Elliott Sol > 04/06/21 0233
[2021-04-06 15:57] LABS: BASO # 0.1 10^3/uL (0.0-0.2); BASO % 0.4 % (0.0-1.0); EOS % 0.1 % (0.0-3.0); HEMATOCRIT 45.4 % (42.0-52.0); HEMOGLOBIN 14.6 g/dl (13.5-17.5); LYMPH # 0.6 10^3/uL (1.5-5.0); MEAN CORPUSCULAR HEMOGLOBIN 28.7 pg (27.0-33.0); MEAN CORPUSCULAR HGB CONC 32.2 g/dl (32.0-36.5); MEAN CORPUSCULAR VOLUME 89.4 fl (80.0-96.0); MONO # 0.4 10^3/uL (0.0-0.8); MONO % 2.4 % (2.0-8.0); NEUTROPHILS # 14.4 10^3/uL (1.5-8.5); NEUTROPHILS % 92.1 % (36.0-66.0); PLATELET COUNT, AUTOMATED 417 10^3/uL (150-450); RED BLOOD COUNT 5.08 10^6/uL (4.30-6.10); WHITE BLOOD COUNT 15.6 10^3/uL (4.0-10.0)
[2021-04-06 16:15] LABS: ERYTHROCYTE SEDIMENTATION RATE 18 mm/hr (0-20)
[2021-04-06 16:56] LABS: C REACTIVE PROTEIN QUANTITATIV 1.76 MG/DL (0.00-0.30)
== END ==
LOC: M PLAIMG 12:33
PROVIDERS: ATTEND Physician Assistant Medical
DX: M48.05 Spinal stenosis, thoracolumbar region (principal); M41.86 Other forms of scoliosis, lumbar region; K21.9 Gastro-esophageal reflux disease without esophagitis

== ENCOUNTER → 2021-05-31 | Outpatient (CLI) | payer BC ==
[~2021-05-31] MED LIST changes: +ACET-897 PO; +CARA1TAB6 PO; +CEFD300C41 PO; +CIPR250T3 PO; +GABA-1171 PO; +HYDR-4571 PO; +LISI20TA33; +METR-265 PO; +MORP-69; +MORP15TASA PO; +OMEP-173 PO; -OMEP-218 PO; +OMEP40CA5 PO; +OXYC1TAB23; +OXYC1TAB23 PO; +SUCR1TAB56 PO
[2021-05-31 14:22] LABS: BASO % 0.3 % (0.0-1.0); EOS % 0.2 % (0.0-3.0); HEMATOCRIT 39.2 % (42.0-52.0); HEMOGLOBIN 12.6 g/dl (13.5-17.5); LYMPH # 0.6 10^3/uL (1.5-5.0); LYMPH % 4.2 % (24.0-44.0); MEAN CORPUSCULAR HEMOGLOBIN 25.8 pg (27.0-33.0); MEAN CORPUSCULAR HGB CONC 32.1 g/dl (32.0-36.5); MEAN CORPUSCULAR VOLUME 80.3 fl (80.0-96.0); MONO # 0.5 10^3/uL (0.0-0.8); MONO % 3.7 % (2.0-8.0); NEUTROPHILS # 11.9 10^3/uL (1.5-8.5); NEUTROPHILS % 90.8 % (36.0-66.0); PLATELET COUNT, AUTOMATED 467 10^3/uL (150-450); RED BLOOD COUNT 4.88 10^6/uL (4.30-6.10); WHITE BLOOD COUNT 13.2 10^3/uL (4.0-10.0)
[2021-05-31 14:43] LABS: ALBUMIN 3.3 GM/DL (3.2-5.2); ALT/SGPT 21 U/L (12-78); BILIRUBIN,TOTAL 0.4 MG/DL (0.2-1.0); BLOOD UREA NITROGEN 13 MG/DL (7-18); CALCIUM LEVEL 9.5 MG/DL (8.8-10.2); CARBON DIOXIDE LEVEL 27 MEQ/L (21-32); CHLORIDE LEVEL 97 MEQ/L (98-107); CREATININE FOR GFR 0.84 MG/DL (0.70-1.30); FERRITIN 15 NG/ML (26-388); GLOMERULAR FILTRATION RATE > 60.0 (>49); GLUCOSE, FASTING 94 MG/DL (70-100); IRON (FE) 16 UG/DL (65-175); POTASSIUM SERUM 4.8 MEQ/L (3.5-5.1); SODIUM LEVEL 130 MEQ/L (136-145); TOTAL PROTEIN 6.6 GM/DL (6.4-8.2)
== END ==
LOC: M PLALAB 11:41
PROVIDERS: ATTEND Physician Assistant Medical
DX: R10.13 Epigastric pain (principal)

== ENCOUNTER 2021-06-08 08:38 | Outpatient (CLI) | payer BC ==
[~2021-06-08] VITALS: Ht 175.3 cm; Wt 48.2 kg
[~2021-06-08 08:38] MED LIST changes: -ACET-897 PO; -CARA1TAB6 PO; -CEFD300C41 PO; -CIPR250T3 PO; -GABA-1171 PO; -HYDR-4571 PO; -LISI20TA33; -METR-265 PO; -MORP-69; -MORP15TASA PO; -OMEP-173 PO; +OMEP-218 PO; -OMEP40CA5 PO; -OXYC1TAB23; -OXYC1TAB23 PO; -SUCR1TAB56 PO
[2021-06-08] MEDS ORDERED: IRON SUCROSE 25 MG in NS 25 ML IV ONE (09:00)
[2021-06-08] MEDS ORDERED: IRON SUCROSE 225 MG in NS 225 ML IV ONE (09:00)
[2021-06-08 09:07] VITALS: BP 130/83
[2021-06-08 11:00] VITALS: BP 133/79
== END 2021-06-08 11:45 | disposition home or self-care (01) ==
LOC: M INFU 08:38
PROVIDERS: ATTEND Physician Assistant Medical
DX: D50.9 Iron deficiency anemia, unspecified (principal); Z88.0 Allergy status to penicillin
CPT/HCPCS: 96365; 96366; J1756

== ENCOUNTER 2021-06-22 21:20 | Inpatient (IN) | payer MEDICARE, BC ==
[~2021-06-22] VITALS: Ht 175.3 cm; Wt 45.4 kg
[~2021-06-22 21:20] MED LIST changes: +OMEP-173 PO; -OMEP-218 PO
[2021-06-22] MEDS ORDERED: CARA1TAB6 PO (22:08)
[2021-06-22 22:11] LABS: BASO # 0.1 10^3/uL (0.0-0.2); BASO % 0.3 % (0.0-1.0); EOS % 0.1 % (0.0-3.0); HEMATOCRIT 35.4 % (42.0-52.0); HEMOGLOBIN 11.1 g/dl (13.5-17.5); LYMPH # 0.5 10^3/uL (1.5-5.0); LYMPH % 2.7 % (24.0-44.0); MEAN CORPUSCULAR HEMOGLOBIN 24.8 pg (27.0-33.0); MEAN CORPUSCULAR HGB CONC 31.4 g/dl (32.0-36.5); MONO # 1.2 10^3/uL (0.0-0.8); MONO % 6.3 % (2.0-8.0); NEUTROPHILS # 17.1 10^3/uL (1.5-8.5); NEUTROPHILS % 89.7 % (36.0-66.0); PLATELET COUNT, AUTOMATED 505 10^3/uL (150-450); RED BLOOD COUNT 4.48 10^6/uL (4.30-6.10); WHITE BLOOD COUNT 19.1 10^3/uL (4.0-10.0)
[2021-06-22 22:41] LABS: ALBUMIN 2.9 GM/DL (3.2-5.2); ALT/SGPT 74 U/L (12-78); BILIRUBIN,DIRECT 0.3 MG/DL (0.0-0.2); BILIRUBIN,TOTAL 0.5 MG/DL (0.2-1.0); BLOOD UREA NITROGEN 23 MG/DL (7-18); CALCIUM LEVEL 9.8 MG/DL (8.8-10.2); CARBON DIOXIDE LEVEL 28 MEQ/L (21-32); CHLORIDE LEVEL 96 MEQ/L (98-107); CREATININE FOR GFR 0.82 MG/DL (0.70-1.30); GLOMERULAR FILTRATION RATE > 60.0 (>49); GLUCOSE, FASTING 139 MG/DL (70-100); LIPASE 27 U/L (73-393); POTASSIUM SERUM 3.9 MEQ/L (3.5-5.1); SODIUM LEVEL 133 MEQ/L (136-145); TOTAL PROTEIN 6.4 GM/DL (6.4-8.2)
[2021-06-22] MEDS ORDERED: NS 1,000 ML IV ONE (22:50)
[2021-06-22] MEDS ORDERED: GI COCKTAIL 50ML BTL(HYOSCYAMINE/MAALOX/LIDOCAINE VISCOUS)(1:3:1) PO ONE (22:50)
[2021-06-22] MEDS ORDERED: ISOVUE-370 76% 100ML VIAL As Ordered ONE (23:02)
[2021-06-22] MEDS ORDERED: PANTOPRAZOLE 40MG VIAL (C9113 PER 1) IV ONE (23:40)
[2021-06-23] MEDS ORDERED: PANTOPRAZOLE SODIUM 40 MG in D5W 50 ML IV SCH ×2
[2021-06-23 00:24] LABS: RSV AMPLIFICATION NEGATIVE (NEGATIVE)
[2021-06-23 01:06] LABS: FOLATE 8.1 NG/ML (>5.4); VITAMIN B12 LEVEL 931 PG/ML (247-911)
[2021-06-23 01:35] LABS: FERRITIN 496 NG/ML (26-388); IRON (FE) 11 UG/DL (65-175); TOTAL IRON BINDING CAPACITY 272 UG/DL (250-450)
[2021-06-23] MEDS ORDERED: ALBU83IN INH (01:37)
[2021-06-23] MEDS ORDERED: HYDR-4571 PO (01:37)
[2021-06-23] MEDS ORDERED: ACET-897 PO (01:37)
[2021-06-23] MEDS ORDERED: OMEP40CA5 PO (01:37)
[2021-06-23] MEDS ORDERED: SUCR1TAB56 PO (01:37)
[2021-06-23] MEDS ORDERED: GABA-1171 PO (01:37)
[2021-06-23] MEDS ORDERED: ALBUTEROL 90 MCG/ACT 8GM HFA INHALER INH PRN (01:50)
[2021-06-23] MEDS ORDERED: HOME MED LIST COMPLETE! XX SCH (02:05)
[2021-06-23 02:41] VITALS: BP 156/98
[2021-06-23 05:12] VITALS: BP 145/90
[2021-06-23] MEDS: SUCRALFATE SUSP 1GM/10ML UD PO SCH ×3 (05:13→21:29)
[2021-06-23] MEDS: CIPROFLOXACIN 400 MG in IV 1 EA IV SCH ×2 (05:13→14:29)
[2021-06-23] MEDS: D5W/0.9% SODIUM CHLORIDE 1,000 ML IV SCH ×3 (05:13→21:29)
[2021-06-23 07:04] LABS: INR 1.19; PROTHROMBIN TIME 15.5 SECONDS (12.7-14.5)
[2021-06-23 07:05] LABS: PARTIAL THROMBOPLASTIN TIME 39.5 SECONDS (25.9-37.0)
[2021-06-23 07:06] LABS: HEMOGLOBIN A1c 5.4 %
[2021-06-23] MEDS ORDERED: SUCRALFATE 1 GM TAB PO SCH (07:30)
[2021-06-23] MEDS ORDERED: ACETAMINOPHEN 500 MG TAB PO SCH (09:00)
[2021-06-23] MEDS: predniSONE 10 MG TAB PO SCH (10:10)
[2021-06-23] MEDS: PANTOPRAZOLE 40MG VIAL (C9113 PER 1) IV SCH ×2 (11:07→23:07)
[2021-06-23 13:50] LABS: HEMATOCRIT 28.5 % (42.0-52.0); HEMOGLOBIN 9.2 g/dl (13.5-17.5); MEAN CORPUSCULAR HEMOGLOBIN 25.3 pg (27.0-33.0); MEAN CORPUSCULAR HGB CONC 32.3 g/dl (32.0-36.5); MEAN CORPUSCULAR VOLUME 78.5 fl (80.0-96.0); PLATELET COUNT, AUTOMATED 314 10^3/uL (150-450); RED BLOOD COUNT 3.63 10^6/uL (4.30-6.10); WHITE BLOOD COUNT 12.1 10^3/uL (4.0-10.0)
[2021-06-23 14:00] VITALS: BP 145/89
[2021-06-23 21:19] VITALS: BP 137/84
[2021-06-23] MEDS: GABAPENTIN 100 MG CAP PO SCH (21:29)
[2021-06-23] MEDS: MORPHINE 2 MG/ML 1ML VIAL (J2270) IV PRN (21:31)
[2021-06-23 23:00] VITALS: BP 171/104
[2021-06-23] MEDS ORDERED: MORPHINE 2 MG/ML 1ML VIAL (J2270) IV ONE (23:00)
[2021-06-23 23:23] LABS: HEMATOCRIT 32.4 % (42.0-52.0)
[2021-06-24] VITALS (7 sets, daily range): BP systolic 166–174; BP diastolic 97–100
[2021-06-24] MEDS ORDERED: GI COCKTAIL 50ML BTL(HYOSCYAMINE/MAALOX/LIDOCAINE VISCOUS)(1:3:1) PO ONE ×2 (01:00→22:00)
[2021-06-24] MEDS ORDERED: MORPHINE 2 MG/ML 1ML VIAL (J2270) IV ONE (02:00)
[2021-06-24] MEDS: CIPROFLOXACIN 400 MG in IV 1 EA IV SCH ×2 (02:31→15:24)
[2021-06-24] MEDS: SUCRALFATE SUSP 1GM/10ML UD PO SCH ×3 (05:50→22:04)
[2021-06-24] MEDS: MORPHINE 2 MG/ML 1ML VIAL (J2270) IV PRN (05:52)
[2021-06-24 06:09] LABS: HEMATOCRIT 30.5 % (42.0-52.0); HEMOGLOBIN 9.5 g/dl (13.5-17.5); MEAN CORPUSCULAR HEMOGLOBIN 24.5 pg (27.0-33.0); MEAN CORPUSCULAR HGB CONC 31.1 g/dl (32.0-36.5); MEAN CORPUSCULAR VOLUME 78.8 fl (80.0-96.0); PLATELET COUNT, AUTOMATED 340 10^3/uL (150-450); RED BLOOD COUNT 3.87 10^6/uL (4.30-6.10); WHITE BLOOD COUNT 13.5 10^3/uL (4.0-10.0)
[2021-06-24 06:34] LABS: BLOOD UREA NITROGEN 15 MG/DL (7-18); CALCIUM LEVEL 8.8 MG/DL (8.8-10.2); CARBON DIOXIDE LEVEL 26 MEQ/L (21-32); CHLORIDE LEVEL 104 MEQ/L (98-107); CREATININE FOR GFR 0.59 MG/DL (0.70-1.30); GLOMERULAR FILTRATION RATE > 60.0 (>49); GLUCOSE, FASTING 127 MG/DL (70-100); POTASSIUM SERUM 3.5 MEQ/L (3.5-5.1); SODIUM LEVEL 139 MEQ/L (136-145)
[2021-06-24 06:38] LABS: ALBUMIN 2.4 GM/DL (3.2-5.2); ALT/SGPT 44 U/L (12-78); AMYLASE 16 U/L (25-115); BILIRUBIN,TOTAL 0.5 MG/DL (0.2-1.0); BLOOD UREA NITROGEN 14 MG/DL (7-18); CALCIUM LEVEL 8.9 MG/DL (8.8-10.2); CARBON DIOXIDE LEVEL 26 MEQ/L (21-32); CHLORIDE LEVEL 103 MEQ/L (98-107); CREATININE FOR GFR 0.61 MG/DL (0.70-1.30); GLOMERULAR FILTRATION RATE > 60.0 (>49); GLUCOSE, FASTING 130 MG/DL (70-100); LIPASE 21 U/L (73-393); POTASSIUM SERUM 3.5 MEQ/L (3.5-5.1); SODIUM LEVEL 138 MEQ/L (136-145); TOTAL PROTEIN 5.5 GM/DL (6.4-8.2)
[2021-06-24] MEDS: predniSONE 10 MG TAB PO SCH (08:19)
[2021-06-24] MEDS: PANTOPRAZOLE 40MG VIAL (C9113 PER 1) IV SCH ×2 (11:31→23:12)
[2021-06-24] MEDS: D5W/0.9% SODIUM CHLORIDE 1,000 ML IV SCH ×2 (11:48→20:41)
[2021-06-24] MEDS ORDERED: fentaNYL 100 MCG/2 ML INJECTION (J3010) As Ordered ONE (16:26)
[2021-06-24] MEDS ORDERED: LIDOCAINE 2% 100MG/5ML SDV (FOR ANES.) As Ordered ONE (16:26)
[2021-06-24] MEDS ORDERED: propofoL 200 MG/20 ML VIAL As Ordered ONE (16:26)
[2021-06-24] MEDS ORDERED: fentaNYL 100 MCG/2 ML INJECTION (J3010) IV PRN (17:10)
[2021-06-24] MEDS ORDERED: ONDANSETRON 4MG/2ML VIAL IV PRN (17:10)
[2021-06-24] MEDS: metroNIDAZOLE 500 MG in IV 1 EA IV SCH (17:58)
[2021-06-24] MEDS: GABAPENTIN 100 MG CAP PO SCH (20:41)
[2021-06-24] MEDS ORDERED: carisoprodoL 350 MG TAB PO PRN (21:25)
[2021-06-24] MEDS ORDERED: HYDROMORPHONE HCL 0.5 MG/ 0.5 ML SYRINGE (J1170 PER 1) IV ONE (22:00)
[2021-06-25] VITALS (9 sets, daily range): BP systolic 123–176; BP diastolic 72–95
[2021-06-25] MEDS: metroNIDAZOLE 500 MG in IV 1 EA IV SCH ×3 (02:08→17:43)
[2021-06-25] MEDS: CIPROFLOXACIN 400 MG in IV 1 EA IV SCH ×2 (02:10→14:25)
[2021-06-25] MEDS: SUCRALFATE SUSP 1GM/10ML UD PO SCH ×3 (06:35→21:27)
[2021-06-25 08:36] LABS: HEMATOCRIT 27.9 % (42.0-52.0); HEMOGLOBIN 8.9 g/dl (13.5-17.5); MEAN CORPUSCULAR HEMOGLOBIN 24.7 pg (27.0-33.0); MEAN CORPUSCULAR HGB CONC 31.9 g/dl (32.0-36.5); MEAN CORPUSCULAR VOLUME 77.3 fl (80.0-96.0); PLATELET COUNT, AUTOMATED 297 10^3/uL (150-450); RED BLOOD COUNT 3.61 10^6/uL (4.30-6.10); WHITE BLOOD COUNT 10.4 10^3/uL (4.0-10.0)
[2021-06-25 09:14] LABS: BLOOD UREA NITROGEN 13 MG/DL (7-18); CALCIUM LEVEL 8.7 MG/DL (8.8-10.2); CARBON DIOXIDE LEVEL 27 MEQ/L (21-32); CHLORIDE LEVEL 103 MEQ/L (98-107); CREATININE FOR GFR 0.57 MG/DL (0.70-1.30); GLOMERULAR FILTRATION RATE > 60.0 (>49); GLUCOSE, FASTING 118 MG/DL (70-100); POTASSIUM SERUM 2.9 MEQ/L (3.5-5.1); SODIUM LEVEL 137 MEQ/L (136-145)
[2021-06-25] MEDS ORDERED: SEVOFLURANE INHAL SOLN 250 ML BTL As Ordered ONE (09:34)
[2021-06-25] MEDS ORDERED: LIDOCAINE 2% 100MG/5ML SDV (FOR ANES.) As Ordered ONE (09:37)
[2021-06-25] MEDS ORDERED: ROCURONIUM BROMIDE 50 MG/5 ML VIAL As Ordered ONE (09:37)
[2021-06-25] MEDS ORDERED: dexameTHASONE 4 MG/ML 1ML VIAL (J1100 PER 1MG) As Ordered ONE ×2 (09:37→11:31)
[2021-06-25] MEDS ORDERED: SUGAMMADEX SODIUM 500 MG/5 ML VIAL (BRIDION) As Ordered ONE (09:37)
[2021-06-25] MEDS ORDERED: ONDANSETRON 4MG/2ML VIAL As Ordered ONE ×3 (09:37→11:31)
[2021-06-25] MEDS ORDERED: propofoL 200 MG/20 ML VIAL As Ordered ONE (09:37)
[2021-06-25] MEDS ORDERED: METOCLOPRAMIDE INJ 10MG/2ML VIAL (J2765 PER 1) As Ordered ONE (09:37)
[2021-06-25] MEDS ORDERED: MIDAZOLAM INJ 2MG/2ML VIAL (J2250 PER 1MG) As Ordered ONE (09:41)
[2021-06-25] MEDS ORDERED: fentaNYL 250 MCG/5 ML INJECTION (J3010) As Ordered ONE (09:41)
[2021-06-25] MEDS ORDERED: BUPIVACAINE HCL 0.25% 30ML VIAL As Ordered ONE (09:42)
[2021-06-25] MEDS: predniSONE 10 MG TAB PO SCH (09:44)
[2021-06-25] MEDS ORDERED: POTASSIUM CHLORIDE 10MEQ SR TABLET PO ONE (09:45)
[2021-06-25] MEDS ORDERED: KCL 10MEQ/100ML SWI (KRUN) 10 MEQ in IV 1 EA IV ONE (10:00)
[2021-06-25] MEDS ORDERED: ACETAMINOPHEN 1000MG 100ML IV BTL (OFIRMEV) (J0131 PER 10MG) As Ordered ONE (11:30)
[2021-06-25] MEDS ORDERED: SUCCINYLCHOLINE 100 MG/5 ML SYRINGE (J0330) As Ordered ONE (11:43)
[2021-06-25] MEDS ORDERED: MORPHINE 2 MG/ML 1ML VIAL (J2270) IV PRN (12:55)
[2021-06-25] MEDS ORDERED: ACETAMINOPHEN TAB 650MG DOSE (2X325MG) PO PRN (12:55)
[2021-06-25] MEDS ORDERED: fentaNYL 100 MCG/2 ML INJECTION (J3010) IV PRN (13:05)
[2021-06-25] MEDS ORDERED: ONDANSETRON 4MG/2ML VIAL IV PRN (13:05)
[2021-06-25] MEDS ORDERED: LR 1,000 ML IV SCH (13:05)
[2021-06-25] MEDS ORDERED: PERCOCET 5MG/325MG TAB PO PRN (13:05)
[2021-06-25] MEDS: PANTOPRAZOLE 40MG VIAL (C9113 PER 1) IV SCH ×2 (14:25→23:00)
[2021-06-25] MEDS: D5W/0.9% SODIUM CHLORIDE 1,000 ML IV SCH (14:32)
[2021-06-25 14:52] LABS: BLOOD UREA NITROGEN 13 MG/DL (7-18); CALCIUM LEVEL 8.9 MG/DL (8.8-10.2); CARBON DIOXIDE LEVEL 29 MEQ/L (21-32); CHLORIDE LEVEL 105 MEQ/L (98-107); CREATININE FOR GFR 0.75 MG/DL (0.70-1.30); GLOMERULAR FILTRATION RATE > 60.0 (>49); GLUCOSE, FASTING 123 MG/DL (70-100); POTASSIUM SERUM 4.1 MEQ/L (3.5-5.1); SODIUM LEVEL 138 MEQ/L (136-145)
[2021-06-25] MEDS: GABAPENTIN 100 MG CAP PO SCH (21:27)
[2021-06-25] MEDS: NORCO, ANEXSIA 5/325MG TABLET (HYDROcodone/ACETAMINOPHEN) PO PRN (23:00)
[2021-06-26] MEDS: metroNIDAZOLE 500 MG in IV 1 EA IV SCH ×2 (01:23→10:24)
[2021-06-26 02:18] VITALS: BP 145/85
[2021-06-26] MEDS: CIPROFLOXACIN 400 MG in IV 1 EA IV SCH (02:44)
[2021-06-26] MEDS: D5W/0.9% SODIUM CHLORIDE 1,000 ML IV SCH (03:54)
[2021-06-26 05:23] VITALS: BP 141/84
[2021-06-26] MEDS: SUCRALFATE SUSP 1GM/10ML UD PO SCH (05:33)
[2021-06-26] MEDS: NORCO, ANEXSIA 5/325MG TABLET (HYDROcodone/ACETAMINOPHEN) PO PRN (05:34)
[2021-06-26 06:38] LABS: HEMATOCRIT 26.3 % (42.0-52.0); HEMOGLOBIN 8.2 g/dl (13.5-17.5); MEAN CORPUSCULAR HEMOGLOBIN 24.9 pg (27.0-33.0); MEAN CORPUSCULAR HGB CONC 31.2 g/dl (32.0-36.5); MEAN CORPUSCULAR VOLUME 79.9 fl (80.0-96.0); PLATELET COUNT, AUTOMATED 279 10^3/uL (150-450); RED BLOOD COUNT 3.29 10^6/uL (4.30-6.10); WHITE BLOOD COUNT 9.9 10^3/uL (4.0-10.0)
[2021-06-26 07:15] LABS: ALBUMIN 1.9 GM/DL (3.2-5.2); ALT/SGPT 162 U/L (12-78); BILIRUBIN,TOTAL 0.2 MG/DL (0.2-1.0); BLOOD UREA NITROGEN 17 MG/DL (7-18); CALCIUM LEVEL 8.5 MG/DL (8.8-10.2); CARBON DIOXIDE LEVEL 26 MEQ/L (21-32); CHLORIDE LEVEL 106 MEQ/L (98-107); CREATININE FOR GFR 0.72 MG/DL (0.70-1.30); GLOMERULAR FILTRATION RATE > 60.0 (>49); GLUCOSE, FASTING 144 MG/DL (70-100); POTASSIUM SERUM 3.7 MEQ/L (3.5-5.1); SODIUM LEVEL 137 MEQ/L (136-145); TOTAL PROTEIN 5.1 GM/DL (6.4-8.2)
[2021-06-26] MEDS: predniSONE 10 MG TAB PO SCH (08:47)
[2021-06-26] MEDS ORDERED: METR-265 PO (09:23)
[2021-06-26] MEDS ORDERED: CIPR250T3 PO (09:23)
[2021-06-26 10:00] VITALS: BP 142/82
[2021-06-26] MEDS: PANTOPRAZOLE 40MG VIAL (C9113 PER 1) IV SCH (11:59)
== END 2021-06-26 12:24 | disposition home or self-care (01) | DRG 417 ==
LOC: M ED 21:20 → M ED INP 06-23 00:01 → ENRESERV 06-23 01:09 → M MSPAV 06-23 02:41
PROVIDERS: ADMIT Family Medicine; ATTEND Family Medicine
PROC: 0DJ08ZZ Inspection of Upper Intestinal Tract, Via Natural or Artificial Opening Endoscopic (ICD-10-PCS; 2021-06-24)
PROC: 0FT44ZZ Resection of Gallbladder, Percutaneous Endoscopic Approach (ICD-10-PCS; principal; 2021-06-25 11:00)
DX: K80.62 Calculus of gallbladder and bile duct with acute cholecystitis without obstruction (principal); E43 Unspecified severe protein-calorie malnutrition; D62 Acute posthemorrhagic anemia; K92.2 Gastrointestinal hemorrhage, unspecified; K26.9 Duodenal ulcer, unspecified as acute or chronic, without hemorrhage or perforation; K21.9 Gastro-esophageal reflux disease without esophagitis; J44.9 Chronic obstructive pulmonary disease, unspecified; F17.200 Nicotine dependence, unspecified, uncomplicated; D50.9 Iron deficiency anemia, unspecified; K44.9 Diaphragmatic hernia without obstruction or gangrene; R10.13 Epigastric pain; K57.10 Diverticulosis of small intestine without perforation or abscess without bleeding; R00.0 Tachycardia, unspecified; G89.29 Other chronic pain; I10 Essential (primary) hypertension; I86.4 Gastric varices; Z96.651 Presence of right artificial knee joint; Z90.49 Acquired absence of other specified parts of digestive tract; Z79.891 Long term (current) use of opiate analgesic; Z79.899 Other long term (current) drug therapy; Z88.0 Allergy status to penicillin

== ENCOUNTER 2021-07-08 18:00 | Inpatient (IN) | payer MEDICARE, BC ==
[~2021-07-08] VITALS: Ht 175.3 cm; Wt 46.8 kg
[~2021-07-08 18:00] MED LIST changes: -CEFD300C41 PO; -LISI20TA33; -MORP-69; -MORP15TASA PO; -OXYC1TAB23; -OXYC1TAB23 PO
[2021-07-08] MEDS ORDERED: LISI20TA33 (18:11)
[2021-07-08] MEDS ORDERED: MORP-69 (18:11)
[2021-07-08] MEDS ORDERED: OXYC1TAB23 (18:11)
[2021-07-09] MEDS ORDERED: OXYC1TAB23 PO (00:14)
[2021-07-09] MEDS ORDERED: LISI20TA33 PO (00:14)
[2021-07-09] MEDS ORDERED: MORP15TASA PO (00:14)
[2021-07-10] MEDS ORDERED: CEFD300C41 PO (12:59)
[2021-07-10] MEDS ORDERED: METR-265 PO (12:59)
[2021-07-11 06:00] VITALS: BP 148/77
== END 2021-07-11 11:55 | disposition home or self-care (01) | DRG 371 ==
LOC: M ED 18:00 → M ED INP 18:01 → M MS5PR 07-09 04:27 → OBSVTOIN 07-09 16:30
PROVIDERS: ADMIT Internal Medicine; ATTEND Internal Medicine Nephrology
PROC: 0W9G3ZZ Drainage of Peritoneal Cavity, Percutaneous Approach (ICD-10-PCS; principal; 2021-07-09)
DX: K65.2 Spontaneous bacterial peritonitis (principal); K66.1 Hemoperitoneum; E43 Unspecified severe protein-calorie malnutrition; Z68.1 Body mass index [BMI] 19.9 or less, adult; C78.89 Secondary malignant neoplasm of other digestive organs; C80.1 Malignant (primary) neoplasm, unspecified; J44.9 Chronic obstructive pulmonary disease, unspecified; F17.210 Nicotine dependence, cigarettes, uncomplicated; D72.829 Elevated white blood cell count, unspecified; K21.9 Gastro-esophageal reflux disease without esophagitis; K70.31 Alcoholic cirrhosis of liver with ascites; Z66 Do not resuscitate; M06.9 Rheumatoid arthritis, unspecified; D50.9 Iron deficiency anemia, unspecified; K64.8 Other hemorrhoids; G89.29 Other chronic pain; Z90.49 Acquired absence of other specified parts of digestive tract; Z96.651 Presence of right artificial knee joint; Z79.891 Long term (current) use of opiate analgesic; Z79.899 Other long term (current) drug therapy; Z88.0 Allergy status to penicillin; Z79.52 Long term (current) use of systemic steroids

== ENCOUNTER → 2021-07-08 | Outpatient (CLI) | payer MEDICARE, BC ==
[~2021-07-08] MED LIST changes: +ACET-897 PO; +CARA1TAB6 PO; +CEFD300C41 PO; +CIPR250T3 PO; +GABA-1171 PO; +HYDR-4571 PO; +LISI20TA33; +METR-265 PO; +MORP-69; +MORP15TASA PO; +OMEP40CA5 PO; +OXYC1TAB23; +OXYC1TAB23 PO; +SUCR1TAB56 PO
[2021-07-08 15:09] LABS: BASO # 0.1 10^3/uL (0.0-0.2); BASO % 0.4 % (0.0-1.0); EOS % 0.1 % (0.0-3.0); HEMATOCRIT 34.6 % (42.0-52.0); HEMOGLOBIN 10.2 g/dl (13.5-17.5); LYMPH # 0.6 10^3/uL (1.5-5.0); LYMPH % 2.6 % (24.0-44.0); MEAN CORPUSCULAR HEMOGLOBIN 23.8 pg (27.0-33.0); MEAN CORPUSCULAR HGB CONC 29.5 g/dl (32.0-36.5); MEAN CORPUSCULAR VOLUME 80.8 fl (80.0-96.0); MONO # 0.9 10^3/uL (0.0-0.8); MONO % 3.9 % (2.0-8.0); NEUTROPHILS # 20.5 10^3/uL (1.5-8.5); NEUTROPHILS % 91.2 % (36.0-66.0); PLATELET COUNT, AUTOMATED 656 10^3/uL (150-450); RED BLOOD COUNT 4.28 10^6/uL (4.30-6.10); WHITE BLOOD COUNT 22.5 10^3/uL (4.0-10.0)
[2021-07-08 15:42] LABS: ALBUMIN 2.5 GM/DL (3.2-5.2); ALT/SGPT 37 U/L (12-78); BILIRUBIN,TOTAL 0.5 MG/DL (0.2-1.0); BLOOD UREA NITROGEN 18 MG/DL (7-18); CALCIUM LEVEL 8.6 MG/DL (8.8-10.2); CARBON DIOXIDE LEVEL 26 MEQ/L (21-32); CHLORIDE LEVEL 101 MEQ/L (98-107); CREATININE FOR GFR 0.77 MG/DL (0.70-1.30); FERRITIN 93 NG/ML (26-388); GLOMERULAR FILTRATION RATE > 60.0 (>49); GLUCOSE, FASTING 107 MG/DL (70-100); IRON (FE) 25 UG/DL (65-175); POTASSIUM SERUM 4.5 MEQ/L (3.5-5.1); SODIUM LEVEL 137 MEQ/L (136-145); TOTAL PROTEIN 5.3 GM/DL (6.4-8.2)
== END ==
LOC: M PLALAB 11:32
PROVIDERS: ATTEND Physician Assistant Medical
DX: C23 Malignant neoplasm of gallbladder (principal); D50.0 Iron deficiency anemia secondary to blood loss (chronic)

== ENCOUNTER → 2021-07-16 | Outpatient (REF) | payer MEDICARE, BC ==
[~2021-07-16] MED LIST changes: +CEFD300C41 PO; +LISI20TA33; +MORP-69; +MORP15TASA PO; +OXYC1TAB23; +OXYC1TAB23 PO
[2021-07-16 13:12] LABS: HEMATOCRIT 34.3 % (42.0-52.0); HEMOGLOBIN 10.4 g/dl (13.5-17.5); MEAN CORPUSCULAR HEMOGLOBIN 24.2 pg (27.0-33.0); MEAN CORPUSCULAR HGB CONC 30.3 g/dl (32.0-36.5); MEAN CORPUSCULAR VOLUME 79.8 fl (80.0-96.0); PLATELET COUNT, AUTOMATED 431 10^3/uL (150-450); WHITE BLOOD COUNT 21.2 10^3/uL (4.0-10.0)
[2021-07-16 13:41] LABS: ALBUMIN 2.2 GM/DL (3.2-5.2); ALT/SGPT 34 U/L (12-78); BILIRUBIN,TOTAL 0.6 MG/DL (0.2-1.0); BLOOD UREA NITROGEN 21 MG/DL (7-18); CALCIUM LEVEL 8.7 MG/DL (8.8-10.2); CARBON DIOXIDE LEVEL 29 MEQ/L (21-32); CHLORIDE LEVEL 102 MEQ/L (98-107); CREATININE FOR GFR 0.87 MG/DL (0.70-1.30); GLOMERULAR FILTRATION RATE > 60.0 (>49); GLUCOSE, FASTING 84 MG/DL (70-100); IRON (FE) 15 UG/DL (65-175); POTASSIUM SERUM 4.3 MEQ/L (3.5-5.1); SODIUM LEVEL 137 MEQ/L (136-145); TOTAL PROTEIN 5.3 GM/DL (6.4-8.2)
[2021-07-16 14:15] LABS: CA19-9 TUMOR MARKER,CARBOHYDRA 44.2 U/ML (<35.0)
== END ==
LOC: M LAB REF 12:41
PROVIDERS: ATTEND Physician Assistant Medical
DX: C79.51 Secondary malignant neoplasm of bone (principal); D50.0 Iron deficiency anemia secondary to blood loss (chronic); C34.90 Malignant neoplasm of unspecified part of unspecified bronchus or lung